=== PATIENT | male | born 1950 | race Two or more races ===

== ENCOUNTER 2020-10-15 08:38 | Outpatient (REF) | payer MEDICARE, MEDICAID, SELFPAY ==
[2020-10-15 09:19] LABS: MANUAL DIFF FLAG NO
[2020-10-15 09:43] LABS: Basophils Percent Auto 0.3 % (0-2); Eosinophils Absolute Auto 0.1 X10*3/uL (0.0-0.4); Eosinophils Percent Auto 1.4 % (0-4); Hematocrit 44.5 % (42-52); Hemoglobin 14.9 g/dl (14.0-18.0); Imm Gran Abs Auto 0.02 X10*3/uL (0.00-0.03); Imm Gran Pct Auto 0.3 % (0.0-0.4); Lymphocytes Absolute Auto 2.1 X10*3/uL (1.2-4.9); Lymphocytes Percent Auto 28.9 % (20-40); Mean Corpuscular HGB Conc 33.5 g/dl (31.0-36.0); Mean Corpuscular Hemoglobin 32.3 pg (27.0-33.0); Mean Corpuscular Volume 96.3 fL (80-98); Mean Platelet Volume 10.2 fL (9.4-12.4); Monocytes Absolute Auto 0.6 X10*3/uL (0.1-1.2); Monocytes Percent Auto 8.8 % (2-11); Neutrophils Absolute Auto 4.3 X10*3/uL (2.0-8.3); Neutrophils Percent Auto 60.3 % (45-73); Platelet Count 218 X10*3/uL (160-400); Red Blood Count 4.62 X10*6/uL (4.60-5.80); Red Cell Distribution Width 12.2 % (11.0-16.0); White Blood Count 7.1 X10*3/uL (4.8-10.8)
[2020-10-15 10:06] LABS: Anion Gap 12 (12-20); Blood Urea Nitrogen 9 mg/dL (9-16); Calcium 9.3 mg/dL (8.4-10.2); Carbon Dioxide 28 mmol/L (22-29); Chloride 107 mmol/L (96-108); Cholesterol 171 mg/dL; Estimated Glomerular Filt Rate > 60; Glucose Fasting 107 mg/dL (60-99); HDL Cholesterol 50 mg/dL; LDL Cholesterol Calculated 105 mg/dl; Potassium 3.8 mmol/L (3.3-5.1); Sodium 143 mmol/L (135-145); Triglycerides 84 mg/dL
== END 2020-10-15 08:39 | disposition home or self-care (01) ==
LOC: HO.LAB 08:38
PROVIDERS: PCP Internal Medicine; Visit Provider Nurse Practitioner Family
DX: K92.9 Disease of digestive system, unspecified (principal); K21.9 Gastro-esophageal reflux disease without esophagitis
CPT/HCPCS: 36415; 80048; 80061; 85025

== ENCOUNTER 2020-10-16 09:48 | Outpatient (REF) | payer MEDICARE, MEDICAID, SELFPAY | END 2020-10-16 09:49 | disposition home or self-care (01) | LOC: HO.LNP 09:48 | PROVIDERS: Visit Provider Nurse Practitioner Family | DX: K92.9 Disease of digestive system, unspecified (principal) | CPT/HCPCS: 87045; 87046 ==

== ENCOUNTER 2021-02-12 09:48 | Outpatient (REF) | payer MEDICARE, MEDICAID, SELFPAY ==
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
== END 2021-02-12 09:49 | disposition home or self-care (01) ==
LOC: HO.NEURO 09:48
PROVIDERS: Visit Provider Internal Medicine
DX: R29.898 Other symptoms and signs involving the musculoskeletal system (principal)
CPT/HCPCS: 95886; 95910

== ENCOUNTER 2021-11-06 08:28 | Outpatient (REF) | payer MEDICARE, MEDICAID, SELFPAY ==
[2021-11-06 08:58] LABS: MANUAL DIFF FLAG NO
[2021-11-06 09:26] LABS: Basophils Percent Auto 0.4 % (0-2); Eosinophils Absolute Auto 0.1 X10*3/uL (0.0-0.4); Eosinophils Percent Auto 1.6 % (0-4); Hematocrit 47.8 % (42.0-52.0); Hemoglobin 15.8 g/dl (14.0-18.0); Imm Gran Abs Auto 0.04 X10*3/uL (0.00-0.03); Imm Gran Pct Auto 0.5 % (0.0-0.4); Lymphocytes Absolute Auto 2.2 X10*3/uL (1.2-4.9); Lymphocytes Percent Auto 26.8 % (20-40); Mean Corpuscular HGB Conc 33.1 g/dl (31.0-36.0); Mean Corpuscular Hemoglobin 32.4 pg (27.0-33.0); Mean Corpuscular Volume 98.2 fL (80.0-98.0); Mean Platelet Volume 9.7 fL (9.4-12.4); Monocytes Absolute Auto 0.7 X10*3/uL (0.1-1.2); Monocytes Percent Auto 8.7 % (2-11); Platelet Count 223 X10*3/uL (160-400); Red Blood Count 4.87 X10*6/uL (4.60-5.80); Red Cell Distribution Width 12.6 % (11.0-16.0)
[2021-11-06 09:37] LABS: Estimated Average Glucose 103 mg/dL; Hemoglobin A1c % 5.2 %
[2021-11-06 10:22] LABS: Alanine Aminotransferase 39 U/L (0-40); Albumin Level 4.4 g/dL (3.5-5.0); Alkaline Phosphatase 123 U/L (39-117); Anion Gap 13 (12-20); Aspartate Amino Transferase 39 U/L (5-37); Bilirubin Total 1.1 mg/dL (0.0-1.0); Blood Urea Nitrogen 13 mg/dL (9-16); Calcium 9.7 mg/dL (8.4-10.2); Carbon Dioxide 29 mmol/L (22-29); Chloride 106 mmol/L (96-108); Cholesterol 219 mg/dL; Estimated Glomerular Filt Rate > 60; Glucose Random 110 mg/dL (60-115); HDL Cholesterol 65 mg/dL; LDL Cholesterol Calculated 132 mg/dl; Potassium 4.5 mmol/L (3.3-5.1); Sodium 143 mmol/L (135-145); Total Protein 7.5 g/dL (6.5-8.0); Triglycerides 110 mg/dL
[2021-11-06 10:48] LABS: Free T4 (Free Thyroxine) 1.02 ng/dL (0.71-1.85); Thyroid Stimulating Hormone 1.59 uIU/mL (0.32-4.0)
[2021-11-06 11:04] LABS: Folate 12.5 ng/mL (> or = 4.0); Vitamin B12 405 pg/mL (200-900)
[2021-11-06 11:30] LABS: Prostate Specific Antigen Scr 0.96 ng/mL (<0.05-4.0)
== END 2021-11-06 08:29 | disposition home or self-care (01) ==
LOC: HO.LAB 08:28
PROVIDERS: PCP Internal Medicine; Visit Provider Internal Medicine
DX: Z12.5 Encounter for screening for malignant neoplasm of prostate (principal); R73.02 Impaired glucose tolerance (oral); E78.00 Pure hypercholesterolemia, unspecified
CPT/HCPCS: 36415; 80053; 80061; 82607; 82746; 83036; 84153; 84439; 84443; 85025

== ENCOUNTER 2023-04-06 12:53 | Outpatient (AMB) | payer MEDICARE, MEDICAID, SELFPAY ==
--- NOTE | 2023-04-06 12:54 | MHC.PC.OV ---
Vital Signs 04/06/23 12:55 Height 5 ft 9 in Weight 190 lb BMI 28.1 BP 132/76 Blood Pressure Location Lt brachial Position Sitting Pulse 79 Pulse Source Pulse Oximeter Pulse Oximetry (%) 97 Oxygen Delivery Method Room Air Intake Visit Reasons: Annual exam Medication List - Last Reconciled 04/06/23 by Demario Escalante MD clotrimazole 1% 1 appl topical BID 4 weeks miconazole nitrate 2% (Zeasorb AF) 1 appl topical BID omeprazole 20 mg PO DAILY trazodone 50 mg PO BEDTIME PRN 90 days Tobacco use date assessed: 04/06/23 Fall risk assessment: No Falls in past year Last assessed Fall Risk: 04/06/23 Dental Screening Dental Screen Date: 04/06/23 Did you have a dental visit in the last 12 months?: No Did you have a dental problem in the last 6 months where you did not have access to dental care?: No Was dental information given to patient?: Patient has dentist HPI Annual exam HPI Details 72-year-old overweight male with hypercholesterolemia GERD impaired glucose tolerance BPH and generalized anxiety disorder last seen in December 2021 coming in for physical exam. Colonoscopy is up-to-date November 2022 was the last blood work with an elevated cholesterol [facility] Medical History (Updated 04/06/23 @ 13:14 by Demario Escalante MD) Alcohol abuse Anxiety and depression BPH (benign prostatic hyperplasia) C2 cervical fracture Digestive problems Fatty liver GERD (gastroesophageal reflux disease) Hepatitis B Hepatitis C Hypercholesterolemia Impaired glucose tolerance Insomnia Polysubstance abuse Vitamin D deficiency Surgical History History of cataract surgery History of cholecystectomy History of open reduction and internal fixation (ORIF) procedure Family History (Updated 04/06/23 @ 12:56 by Lydia Olmos CMA) Father Diabetes Hypertension Mother Gastric cancer Brother Liver cancer Social History (Updated 04/06/23 @ 13:18 by Demario Escalante MD) Housing: Apartment Alcohol intake: current Alcohol intake frequency: a few times a month Patient Tobacco Use Status: Former Tobacco user Tobacco use type: Cigarette Years Smoked: quit 2019 e-Cigarette/Vaping Use: Never Used Second Hand Smoke Exposure: Yes Current occupational status: retired Cognitive needs: No Hearing needs: No Vision needs: No Questionnaire PHQ-9 Over the last 2 weeks, how often have you been bothered by any of the following problems? 1. Little interest or pleasure in doing things: not at all 2. Feeling down, depressed, or hopeless: not at all 3. Trouble falling or staying asleep, or sleeping too much: not at all 4. Feeling tired or having little energy: not at all 5. Poor appetite or overeating: not at all 6. Feeling bad about yourself - or that you are a failure or have let yourself or your family down: not at all 7. Trouble concentrating on things, such as reading the newspaper or watching television: not at all 8. Moving or speaking so slowly that other people could have noticed. Or the opposite - being so fidgety or restless that you have been moving around a lot more than usual: not at all 9. Thoughts that you would be better off or of hurting yourself in some way: not at all Total score: 0 Depression Screening Interpretation: Negative Source: Developed by Drs. Rafy Caballero, Bere Alejandro, Klever Christianson and colleagues, with an educational amador from [employer]. Thrive Questionnaire Date Thrive assessed: 04/06/23 I am a: Patient What is your living situation today?: I have a steady place to live Within the past 12 months, did the food you bought not last and you didn't have the money to get more?: Never true Within the past 12 months, did you worry whether your food would run out before you got money to buy more?: Never true Do you have trouble paying for medicines?: No Do you have trouble getting transportation to medical appointments?: No Do you have trouble paying your heating and electricity bill?: No Do you have trouble taking care of your child, family member or friend?: No Do you have trouble with day-to-day activities such as bathing, preparing meals, shopping, managing finances, etc.?: No Are you currently unemployed and looking for a job?: No Are you interested in more education?: No Currently or been in a relationship where the following occur: no concerns reported AUDIT C Alcohol Use Questionnaire (AUDIT-C) 1. How often do you have a drink containing alcohol?: 2-4 times a month 2. How many drinks containing alcohol do you have on a typical day when you are drinking?: 1 or 2 3. How often do you have six or more drinks on one occasion?: Never Total Score: 2 DE-7 AMB Questionnaire DE-7 Date DE - 7 assessed: 04/06/23 Feeling nervous, anxious, or on edge: 0 = Not at all Not being able to stop or control worryin = Not at all Worrying too much about different things: 0 = Not at all Trouble relaxin = Not at all Being so restless that it is hard to sit still: 0 = Not at all Becoming easily annoyed or irritable: 0 = Not at all Feeling afraid as if something awful might happen: 0 = Not at all Total DE-7 score (0-4 normal; 5-9 mild; 10-14 moderate; 15-21 severe): 0 Source: Developed by Drs. Rafy Caballero, Bere Alejandro, Klever Christianson and colleagues, with an educational amador from [employer]. Review of Systems Const Denies poor appetite and Denies weakness Eyes Denies no additional complaints ENT Reports Normal hearing present, Denies dizziness, Denies nasal congestion, Denies tinnitus and Denies sore throat Card Denies chest pain, Denies syncope, Denies rapid heart rate and Denies dyspnea Resp Denies cough and Denies dyspnea GI Denies change in stool character, Reports constipation, Denies diarrhea, Denies nausea and Denies vomiting Denies dysuria and Denies urinary frequency Neuro Reports Normal hearing present, Denies confusion, Denies dizziness, Denies syncope and Denies weakness Psych Denies confusion Physical exam (Primary Care) Vital Signs: Last Vital Signs Pulse 79 04/06/23 12:55 BP 132/76 04/06/23 12:55 Pulse Ox 97 04/06/23 12:55 Oxygen Delivery Method Room Air 04/06/23 12:55 BMI result Body Mass Index 28.1 Tobacco/Smoking Status: Tobacco use Status Tobacco use date assessed 04/06/23 04/06/23 12:59 Patient Tobacco Use Status Former Tobacco user 04/06/23 12:59 Tobacco use type Cigarette 04/06/23 12:59 e-Cigarette/Vaping Use Never Used 04/06/23 12:59 PHQ-9: PHQ-9 Score PHQ-9: Total score 0 04/06/23 12:59 Depression Screening Interpretation: Negative Thrive Assessment: Date of Thrive Assessment Date Thrive assessed 04/06/23 04/06/23 12:59 Currently or been in a relationship where the following occur: no concerns reported Const General: No confusion Orientation/consciousness: No confusion HENMT Head: Yes normocephalic Ears: external ears normal and TM's normal bilaterally Face and sinus: Yes normal facial exam Mouth: moist mucous membranes Throat: Yes tonsils normal Eyes Conjunctivae: conjunctivae normal Pupils: Equal, round and reactive pupils present and Pupil accommodation reflex normal Direct Ophthalmoscopy: normal light reflex Neck Neck: No lymphadenopathy Thyroid: Thyroid normal Chest Chest palpation & inspection: normal inspection of the chest Resp Effort & Inspection: normal respiratory effort and no audible wheezes Auscultation: clear to auscultation bilaterally, no crackles, no wheezes and lung sounds not diminished Cardio Rate: regular rate Rhythm: regular rhythm Peripheral pulses: radial pulses present and dorsalis pedis present GI Other: declined Palpation (GI): no masses Auscultation: normal bowel sounds and normoactive bowel sounds Rectal Exam - Male: Yes deferred Male General Exam: Yes normal external exam Skin General skin exam: no rashes or lesions noted Rashes: no rashes Neuro General: No confusion Cranial nerves: Yes Equal, round and reactive pupils present and Yes Normal hearing present Cognition (Neuro): normal cognition Gait exam (Neuro): Normal gait present Motor exam (neuro): 5/5 motor strength present throughout Deep tendon reflexes (DTR's): Right brachioradialis reflex intensity grade: 2+, Left brachioradialis reflex intensity grade: 2+, Right patellar reflex intensity grade: 2+ and Left patellar reflex intensity grade: 2+ Extrem General: No edema Assessment and Plan Assessment & Plan (1) Annual physical exam: Code(s): Z00.00 - Encounter for general adult medical examination without abnormal findings (2) Hypercholesterolemia: Code(s): E78.00 - Pure hypercholesterolemia, unspecified Plan: Avoid fried foods, chicken skin, eggs, butter margarine, pastries and meat. Be it pork or beef they have a lot of cholesterol LDL goal of less than 130 and triglyceride of less than 150 will request for blood work (3) GERD (gastroesophageal reflux disease): Comment: loose stools Code(s): K21.9 - Gastro-esophageal reflux disease without esophagitis Qualifiers: Esophagitis presence: without esophagitis Qualified Code(s): K21.9 - Gastro-esophageal reflux disease without esophagitis Plan: Avoid the foods that causes that usually spicy foods, tomato products, juices, coffee, soda and foods that your sensitive to. After eating do not lie down, allow 3-4 hours before in lie down. And keep the head of bed above 30 degrees to avoid the acid from going up. (4) Impaired glucose tolerance: Code(s): R73.02 - Impaired glucose tolerance (oral) Plan: Decrease the amount of carbohydrate intake, pasta, bread, rice and potatoes are all sugar and that is aside from all the sweet stuff, remember that fruits are good but they are Sweet also. (5) BPH (benign prostatic hyperplasia): Code(s): N40.0 - Benign prostatic hyperplasia without lower urinary tract symptoms Qualifiers: Lower urinary tract symptom presence: symptoms present Lower urinary tract symptom detail: urinary frequency Qualified Code(s): N40.1 - Benign prostatic hyperplasia with lower urinary tract symptoms; R35.0 - Frequency of micturition Plan: Stable (6) Generalized anxiety disorder: Code(s): F41.1 - Generalized anxiety disorder Plan: Continued pressure medication Orders: Orders Vitamin B12 and Folate Today E78.00 - Pure hypercholesterolemia, unspecified Comprehensive Met. Panel Today E78.00 - Pure hypercholesterolemia, unspecified Lipid Panel Today E78.00 - Pure hypercholesterolemia, unspecified Prostate Specific Antigen Scr Today E78.00 - Pure hypercholesterolemia, unspecified Free T4 (Free Thyroxine) Today E78.00 - Pure hypercholesterolemia, unspecified Thyroid Stimulating Hormone Today E78.00 - Pure hypercholesterolemia, unspecified Complete Blood Count Auto Diff Today E78.00 - Pure hypercholesterolemia, unspecified Coding Level of Care Code Est Pt Prev Care >65y(29154) Diagnoses Annual physical exam Z00.00 Hypercholesterolemia E78.00 GERD (gastroesophageal reflux disease) K21.9 Esophagitis presence: without esophagitis Impaired glucose tolerance R73.02 BPH (benign prostatic hyperplasia) N40.1; R35.0 Lower urinary tract symptom presence: symptoms present Lower urinary tract symptom detail: urinary frequency Generalized anxiety disorder F41.1
[2023-04-06 12:55] VITALS: BP 132/76; PULSE 79; O2SAT 97; BMI 28.1
== END 2023-04-06 13:28 | disposition home or self-care (01) ==
PROVIDERS: PCP Internal Medicine; Visit Provider Internal Medicine
DX: Z00.00 Encounter for general adult medical examination without abnormal findings (principal); E78.00 Pure hypercholesterolemia, unspecified; K21.9 Gastro-esophageal reflux disease without esophagitis; R73.02 Impaired glucose tolerance (oral); N40.1 Benign prostatic hyperplasia with lower urinary tract symptoms; R35.0 Frequency of micturition; F41.1 Generalized anxiety disorder
CPT/HCPCS: 99397

== ENCOUNTER 2023-06-01 08:59 | Outpatient (REF) | payer MEDICARE, MEDICAID, SELFPAY ==
[2023-06-01 09:23] LABS: MANUAL DIFF FLAG NO
[2023-06-01 09:54] LABS: Basophils Percent Auto 0.4 % (0-2); Eosinophils Absolute Auto 0.1 X10*3/uL (0.0-0.4); Eosinophils Percent Auto 1.1 % (0-4); Hematocrit 47.9 % (42.0-52.0); Hemoglobin 15.8 g/dl (14.0-18.0); Imm Gran Abs Auto 0.02 X10*3/uL (0.00-0.03); Imm Gran Pct Auto 0.3 % (0.0-0.4); Lymphocytes Absolute Auto 2.2 X10*3/uL (1.2-4.9); Lymphocytes Percent Auto 27.1 % (20-40); Mean Corpuscular Hemoglobin 32.2 pg (27.0-33.0); Mean Corpuscular Volume 97.8 fL (80.0-98.0); Monocytes Absolute Auto 0.8 X10*3/uL (0.1-1.2); Monocytes Percent Auto 10.5 % (2-11); Neutrophils Absolute Auto 4.8 x10*3/uL (2.0-8.3); Neutrophils Percent Auto 60.6 % (45-73); Platelet Count 204 X10*3/uL (160-400); Red Cell Distribution Width 13.3 % (11.0-16.0)
[2023-06-01 10:13] LABS: Alanine Aminotransferase 78 U/L (0-40); Albumin Level 4.2 g/dL (3.5-5.0); Alkaline Phosphatase 102 U/L (39-117); Anion Gap 15 (12-20); Aspartate Amino Transferase 79 U/L (5-37); Bilirubin Total 0.8 mg/dL (0.0-1.0); Blood Urea Nitrogen 13 mg/dL (9-16); Calcium 9.6 mg/dL (8.4-10.2); Carbon Dioxide 22 mmol/L (22-29); Chloride 108 mmol/L (96-108); Cholesterol 205 mg/dL (<200); Estimated Glomerular Filt Rate > 60; Glucose Random 112 mg/dL (60-115); HDL Cholesterol 65 mg/dL (>40); LDL Cholesterol Calculated 126 mg/dL (<100); Potassium 3.8 mmol/L (3.3-5.1); Sodium 141 mmol/L (135-145); Total Protein 7.4 g/dL (6.5-8.0); Triglycerides 72 mg/dL (<150)
[2023-06-01 10:34] LABS: Free T4 (Free Thyroxine) 1.01 ng/dL (0.71-1.85); Thyroid Stimulating Hormone 1.18 uIU/mL (0.32-4.0)
[2023-06-01 10:46] LABS: Folate 12.2 ng/mL (> or = 4.0); Prostate Specific Antigen Scr 1.02 ng/mL (<0.05-4.0); Vitamin B12 503 pg/mL (200-900)
== END 2023-06-01 09:00 | disposition home or self-care (01) ==
LOC: HO.LAB 08:59
PROVIDERS: PCP Internal Medicine; Visit Provider Internal Medicine
DX: Z12.5 Encounter for screening for malignant neoplasm of prostate (principal); E78.00 Pure hypercholesterolemia, unspecified
CPT/HCPCS: 36415; 80053; 80061; 82607; 82746; 84153; 84439; 84443; 85025

== ENCOUNTER 2023-12-10 12:52 | Outpatient (AMB) | payer MEDICARE, MEDICAID, SELFPAY ==
[2023-12-10 12:55] VITALS: BP 126/82; PULSE 77; O2SAT 97; BMI 26.9
--- NOTE | 2023-12-10 12:55 | A.OFFPC_ITS ---
Vital Signs 3 12/10/23 12:55 Height 5 ft 9 in Weight 182 lb 0.2 oz BMI 26.9 BP 126/82 Blood Pressure Location Lt brachial Position Sitting Pulse 77 Pulse Source Pulse Oximeter Pulse Oximetry (%) 97 Oxygen Delivery Method Room Air Intake Visit Reasons: fell-left knee hurting Intake Note: pt states left knee pain and swelling [id number] due to a fall. House Player Required: No Allergies No Known Allergies Allergy (Verified 12/10/23 12:56) Medication List - Last Reconciled 12/10/23 by Demario Escalante MD clotrimazole 1% 1 appl topical BID 4 weeks diclofenac sodium 1% (Arthritis Pain (diclofenac)) 4 grams topical QID miconazole nitrate 2% (Zeasorb AF) 1 appl topical BID omeprazole 20 mg PO DAILY trazodone 50 mg PO BEDTIME PRN 90 days Tobacco use date assessed: 12/10/23 Fall risk assessment: No Falls in past year Last assessed Fall Risk: 12/10/23 Dental Screening Dental Screen Date: 04/06/23 HPI fell-left knee hurting 2 HPI0 Details 73-year-old overweight male with hyperch olesterolemia GERD impaired glucose tolerance BPH and generalized anxiety disorder last seen in April 2023. Patient's last colonoscopy was in January 2019. L knee fall 2 months ago and still having pain PFSH Medical History (Updated 12/10/23 @ 13:25 by Demario Escalante MD) Digestive problems Hepatitis C Hepatitis B Polysubstance abuse BPH (benign prostatic hyperplasia) Anxiety and depression Fatty liver Insomnia Impaired glucose tolerance GERD (gastroesophageal reflux disease) Vitamin D deficiency Alcohol abuse Hypercholesterolemia C2 cervical fracture Surgical History History of open reduction and internal fixation (ORIF) procedure History of cataract surgery History of cholecystectomy Family History (Updated 04/06/23 @ 12:56 by Lydia Olmos CMA) Father Diabetes Hypertension Mother Gastric cancer Brother Liver cancer Social History (Updated 04/06/23 @ 13:18 by Demario Escalante MD) Housing: Apartment Alcohol intake: current Alcohol intake frequency: a few times a month Patient Tobacco Use Status: Former Tobacco user Tobacco use type: Cigarette Years Smoked: quit 2019 e-Cigarette/Vaping Use: Never Used Second Hand Smoke Exposure: Yes Current occupational status: retired Cognitive needs: No Hearing needs: No Vision needs: No Questionnaire Thrive Questionnaire Date Thrive assessed: 12/10/23 AUDIT C Alcohol Use Questionnaire (AUDIT-C) 1. How often do you have a drink containing alcohol?: 2-4 times a month 2. How many drinks containing alcohol do you have on a typical day when you are drinking?: 1 or 2 3. How often do you have six or more drinks on one occasion?: Never Total Score: 2 DE-7 AMB Questionnaire DE-7 Date DE - 7 assessed: 12/10/23 Source: Developed by Drs. Rafy Caballero, Bere Alejandro, Klever Christianson and colleagues, with an educational amador from [employer]. Physical exam (Primary Care) Vital Signs: Last Vital Signs Pulse 77 12/10/23 12:55 BP 126/82 12/10/23 12:55 Pulse Ox 97 12/10/23 12:55 Oxygen Delivery Method Room Air 12/10/23 12:55 BMI result Body Mass Index 26.9 Tobacco/Smoking Status: Tobacco use Status Tobacco use date assessed 12/10/23 12/10/23 12:56 Patient Tobacco Use Status Former Tobacco user 12/10/23 12:56 Tobacco use type Cigarette 12/10/23 12:56 e-Cigarette/Vaping Use Never Used 12/10/23 12:56 Thrive Assessment: Date of Thrive Assessment Date Thrive assessed 12/10/23 12/10/23 12:56 Const General: alert; No acute distress Eyes Conjunctivae: conjunctivae normal Resp Auscultation: clear to auscultation bilaterally Cardio Rate: regular rate Rhythm: regular rhythm GI Inspection: Yes normal to inspection Extrem Other: Tender on the medial side as well as posterior area General: No edema Elbow/forearm/wrist images: 2 1. Tender on the medial side and posterior of the knee no swelling or redness noted 2. 3. Assessment and Plan Assessment & Plan (1) Hypercholesterolemia: Code(s): E78.00 - Pure hypercholesterolemia, unspecified Plan: Avoid fried foods, chicken skin, eggs, butter margarine, pastries and meat. Be it pork or beef they have a lot of cholesterol LDL goal of less than 130 and triglyceride of less than 150 (2) GERD (gastroesophageal reflux disease): Comment: loose stools Code(s): K21.9 - Gastro-esophageal reflux disease without esophagitis Qualifiers: Esophagitis presence: without esophagitis Qualified Code(s): K21.9 - Gastro-esophageal reflux disease without esophagitis Plan: Avoid the foods that causes that usually spicy foods, tomato products, juices, coffee, soda and foods that your sensitive to. After eating do not lie down, allow 3-4 hours before in lie down. And keep the head of bed above 30 degrees to avoid the acid from going up. (3) Impaired glucose tolerance: Code(s): R73.02 - Impaired glucose tolerance (oral) (4) Generalized anxiety disorder: Code(s): F41.1 - Generalized anxiety disorder Plan: Stable (5) Fatty liver: Comment: May 2016 Code(s): K76.0 - Fatty (change of) liver, not elsewhere classified Plan: Low-fat diet and exercise (6) Knee pain, left: Comment: Fall early November 2023 Code(s): M25.562 - Pain in left knee Plan: Discussed about anti-inflammatory like Voltaren gel to help with the pain and meanwhile will request for an x-ray of the knee. Pending results either physical therapy or referral to orthopedics. Orders: Orders 2 XR knee LT 2V Today M25.562 - Pain in left knee Medications: New 2 diclofenac sodium 1% (Arthritis Pain (diclofenac)) apply to single knee, ankle, foot; for foot includes sole/toes/top of foot 4 grams topical QID 100 grams 2RF M25.562 - Pain in left knee Refilled 2 trazodone 50 mg PO BEDTIME 90 days PRN 90 tabs 1RF sleep M25.562 - Pain in left knee omeprazole 20 mg PO DAILY 90 caps 2RF K21.9 - Gastro-esophageal reflux disease without esophagitis Coding Level of Care Code Est Pt Level 4 (33200) Diagnoses Hypercholesterolemia E78.00 Gastroesophageal reflux disease without esophagitis K21.9 Esophagitis presence: without esophagitis Impaired glucose tolerance R73.02 Generalized anxiety disorder F41.1 Fatty liver K76.0 Knee pain, left M25.562
== END 2023-12-10 13:26 | disposition home or self-care (01) ==
PROVIDERS: PCP Internal Medicine; Visit Provider Internal Medicine
DX: E78.00 Pure hypercholesterolemia, unspecified (principal); K21.9 Gastro-esophageal reflux disease without esophagitis; R73.02 Impaired glucose tolerance (oral); F41.1 Generalized anxiety disorder; K76.0 Fatty (change of) liver, not elsewhere classified; M25.562 Pain in left knee
CPT/HCPCS: 99214

== ENCOUNTER 2023-12-11 08:52 | Outpatient (REF) | payer MEDICARE, MEDICAID, SELFPAY ==
--- NOTE | ~2023-12-11 | XR_ITS ---
EXAMINATION: XR KNEE, LEFT CLINICAL INFORMATION: Left knee pain. COMPARISON: Bilateral knee radiographs dated 01/25/2018. TECHNIQUE: AP and lateral views of the left knee. FINDINGS: No acute fracture or dislocation. Tiny tricompartmental marginal osteophytes. No osseous erosion. No abnormal soft tissue calcification. Trace joint effusion. XR/XR knee LT 2V IMPRESSION: Mild tricompartmental osteoarthritis and trace joint effusion.
== END 2023-12-11 08:53 | disposition home or self-care (01) ==
LOC: HO.XRAY 08:52
PROVIDERS: PCP Internal Medicine; Visit Provider Internal Medicine
DX: M25.562 Pain in left knee (principal)
CPT/HCPCS: 73560

== ENCOUNTER 2024-04-21 13:00 | Outpatient (AMB) | payer MEDICARE, MEDICAID, SELFPAY ==
[2024-04-21 13:24] VITALS: BP 142/86; PULSE 70; O2SAT 97; BMI 25.4
--- NOTE | 2024-04-21 13:24 | A.OFFPC_ITS ---
Vital Signs 04/21/24 13:24 Height 5 ft 9 in Weight 172 lb 0.1 oz BMI 25.4 BP 142/86 H Blood Pressure Location Lt brachial Position Sitting Pulse 70 Pulse Source Pulse Oximeter Pulse Oximetry (%) 97 Oxygen Delivery Method Room Air Intake Visit Reasons: pe Allergies No Known Allergies Allergy (Verified 12/10/23 12:56) Medication List - Last Reconciled 04/21/24 by Demario Escalante MD omeprazole 20 mg PO DAILY trazodone 50 mg PO BEDTIME PRN 90 days Tobacco use date assessed: 12/10/23 Fall risk assessment: No Falls in past year Last assessed Fall Risk: 04/21/24 Dental Screening Dental Screen Date: 04/21/24 Did you have a dental visit in the last 12 months?: No Did you have a dental problem in the last 6 months where you did not have access to dental care?: No Was dental information given to patient?: Yes HPI pe HPI Details 73-year-old male with hypercholesterolem ia GERD impaired glucose tolerance generalized anxiety disorder coming in for follow-up. Last seen in December 2023. Patient is up-to-date with colonoscopy last time seen having the left knee pain. Showing tricompartmental osteoarthritis and joint effusion. Patient is here for physical exam. L flank pain months intermittently, deny urinary problem PFSH Medical History (Updated 04/21/24 @ 13:51 by Demario Escalante MD) Digestive problems Hepatitis C Hepatitis B Polysubstance abuse BPH (benign prostatic hyperplasia) Anxiety and depression Fatty liver Insomnia Impaired glucose tolerance GERD (gastroesophageal reflux disease) Vitamin D deficiency Alcohol abuse Hypercholesterolemia C2 cervical fracture Surgical History History of open reduction and internal fixation (ORIF) procedure History of cataract surgery History of cholecystectomy Family History (Updated 04/06/23 @ 12:56 by Lydia Olmos CMA) Father Diabetes Hypertension Mother Gastric cancer Brother Liver cancer Social History (Updated 04/21/24 @ 13:38 by Demario Escalante MD) Housing: Apartment Alcohol intake: current Alcohol intake frequency: a few times a month Comment: weekend 3-4 beers Patient Tobacco Use Status: Former Tobacco user Tobacco use type: Cigarette Years Smoked: quit 2020 smokes pot e-Cigarette/Vaping Use: Never Used Second Hand Smoke Exposure: Yes Current occupational status: retired Cognitive needs: No Hearing needs: No Vision needs: No Questionnaire Thrive Questionnaire Date Thrive assessed: 12/10/23 AUDIT C Alcohol Use Questionnaire (AUDIT-C) 1. How often do you have a drink containing alcohol?: Never 3. How often do you have six or more drinks on one occasion?: Never Total Score: 0 DE-7 AMB Questionnaire DE-7 Date DE - 7 assessed: 04/21/24 Feeling nervous, anxious, or on edge: 0 = Not at all Not being able to stop or control worryin = Not at all Worrying too much about different things: 0 = Not at all Trouble relaxin = Not at all Being so restless that it is hard to sit still: 0 = Not at all Becoming easily annoyed or irritable: 0 = Not at all Feeling afraid as if something awful might happen: 0 = Not at all Total DE-7 score (0-4 normal; 5-9 mild; 10-14 moderate; 15-21 severe): 0 Source: Developed by Drs. Rafy Caballero, Bere Alejandro, Klever Christianson and colleagues, with an educational amador from [employer]. DE-7 Assessment Billing DE-7 Assessment Tool: DE-7 Assessment 65325 Review of Systems Const Denies poor appetite and Denies weakness Eyes Denies no additional complaints ENT Reports Normal hearing present, Denies dizziness, Denies nasal congestion, Denies tinnitus and Denies sore throat Card Denies chest pain, Denies syncope, Denies rapid heart rate and Denies dyspnea Resp Denies cough and Denies dyspnea GI Denies change in stool character, Reports constipation, Denies diarrhea, Denies nausea and Denies vomiting Denies dysuria and Denies urinary frequency Neuro Reports Normal hearing present, Denies confusion, Denies dizziness, Denies syncope and Denies weakness Psych Denies confusion Physical exam (Primary Care) Vital Signs: Last Vital Signs Pulse 70 04/21/24 13:24 BP 142/86 H 04/21/24 13:24 Pulse Ox 97 04/21/24 13:24 Oxygen Delivery Method Room Air 04/21/24 13:24 BMI result Body Mass Index 25.4 Tobacco/Smoking Status: Tobacco use Status Tobacco use date assessed 12/10/23 04/21/24 13:29 Patient Tobacco Use Status Former Tobacco user 04/21/24 13:38 Tobacco use type Cigarette 04/21/24 13:38 e-Cigarette/Vaping Use Never Used 04/21/24 13:38 Thrive Assessment: Date of Thrive Assessment Date Thrive assessed 12/10/23 04/21/24 13:29 Const General: No confusion Orientation/consciousness: No confusion HENMT Head: Yes normocephalic Ears: external ears normal and TM's normal bilaterally Face and sinus: Yes normal facial exam Mouth: moist mucous membranes Throat: Yes tonsils normal Eyes Conjunctivae: conjunctivae normal Pupils: Equal, round and reactive pupils present and Pupil accommodation reflex normal Direct Ophthalmoscopy: normal light reflex Neck Neck: No lymphadenopathy Thyroid: Thyroid normal Chest Chest palpation & inspection: normal inspection of the chest Resp Effort & Inspection: normal respiratory effort and no audible wheezes Auscultation: clear to auscultation bilaterally, no crackles, no wheezes and lung sounds not diminished Cardio Rate: regular rate Rhythm: regular rhythm Peripheral pulses: radial pulses present and dorsalis pedis present GI Other: guaiac negative , prostate enlarged Palpation (GI): no masses Auscultation: normal bowel sounds and normoactive bowel sounds Male General Exam: Yes normal external exam Skin General skin exam: no rashes or lesions noted Rashes: no rashes Neuro General: No confusion Cranial nerves: Yes Equal, round and reactive pupils present and Yes Normal hearing present Cognition (Neuro): normal cognition Gait exam (Neuro): Normal gait present Motor exam (neuro): 5/5 motor strength present throughout Deep tendon reflexes (DTR's): Right brachioradialis reflex intensity grade: 2+, Left brachioradialis reflex intensity grade: 2+, Right patellar reflex intensity grade: 2+ and Left patellar reflex intensity grade: 2+ Extrem General: No edema Assessment and Plan Assessment & Plan (1) Annual physical exam: Code(s): Z00.00 - Encounter for general adult medical examination without abnormal findings Plan: Patient is advised to eat healthy, keep well hydrated, keep active and have adequate sleep. (2) Hypercholesterolemia: Code(s): E78.00 - Pure hypercholesterolemia, unspecified Plan: Avoid fried foods, chicken skin, eggs, butter margarine, pastries and meat. Be it pork or beef they have a lot of cholesterol LDL goal of less than 130 and triglyceride of less than 150 05/26/2023 last tested (3) GERD (gastroesophageal reflux disease): Comment: loose stools Code(s): K21.9 - Gastro-esophageal reflux disease without esophagitis Qualifiers: Esophagitis presence: without esophagitis Qualified Code(s): K21.9 - Gastro-esophageal reflux disease without esophagitis Plan: Avoid the foods that causes that usually spicy foods, tomato products, juices, coffee, soda and foods that your sensitive to. After eating do not lie down, allow 3-4 hours before in lie down. And keep the head of bed above 30 degrees to avoid the acid from going up. (4) Impaired glucose tolerance: Code(s): R73.02 - Impaired glucose tolerance (oral) Plan: Decrease the amount of carbohydrate intake, pasta, bread, rice and potatoes are all sugar and that is aside from all the sweet stuff, remember that fruits are good but they are Sweet also. (5) BPH (benign prostatic hyperplasia): Code(s): N40.0 - Benign prostatic hyperplasia without lower urinary tract symptoms Qualifiers: Lower urinary tract symptom detail: urinary frequency Lower urinary tract symptom presence: symptoms present Qualified Code(s): N40.1 - Benign prostatic hyperplasia with lower urinary tract symptoms; R35.0 - Frequency of micturition Plan: Stable (6) Generalized anxiety disorder: Code(s): F41.1 - Generalized anxiety disorder Plan: Stable (7) Knee pain, left: Comment: Fall early November 2023 Code(s): M25.562 - Pain in left knee Plan: X-ray did show arthritis tricompartmental. Resolved (8) Blood pressure elevated without history of HTN: Code(s): R03.0 - Elevated blood-pressure reading, without diagnosis of hypertension Plan: Concern that the blood pressure is elevated and so advised to monitor the blood pressure. Low-salt diet and continue losing the weight (9) Erectile dysfunction: Code(s): N52.9 - Male erectile dysfunction, unspecified Qualifiers: Erectile dysfunction type: vasculogenic Vasculogenic erectile dysf unction type: unspecified Qualified Code(s): N52.9 - Male erectile dysfunction, unspecified Plan: Viagra prescription sent in Orders: Orders Comprehensive Met. Panel Today E78.00 - Pure hypercholesterolemia, unspecified Hemoglobin A1c Today E78.00 - Pure hypercholesterolemia, unspecified Complete Blood Count Auto Diff Today E78.00 - Pure hypercholesterolemia, unspecified Free T4 (Free Thyroxine) Today E78.00 - Pure hypercholesterolemia, unspecified Lipid Panel Today E78.00 - Pure hypercholesterolemia, unspecified Thyroid Stimulating Hormone Today E78.00 - Pure hypercholesterolemia, unspecified Vitamin B12 and Folate Today E78.00 - Pure hypercholesterolemia, unspecified Prostate Specific Antigen Scr Today N40.1 - Benign prostatic hyperplasia with lower urinary tract symptoms, R35.0 - Frequency of micturition Medications: New sildenafil (Viagra) administer 30 minutes to 4 hours before activity 100 mg PO DAILY PRN 14 tabs 2RF sexual activity N52.9 - Male erectile dysfunction, unspecified Refilled omeprazole 20 mg PO DAILY 90 caps 2RF K21.9 - Gastro-esophageal reflux disease without esophagitis trazodone 50 mg PO BEDTIME 90 days PRN 90 tabs 1RF sleep M25.562 - Pain in left knee Coding Level of Care Code Est Pt Prev Care >65y(75064) Diagnoses Annual physical exam Z00.00 Hypercholesterolemia E78.00 Gastroesophageal reflux disease without esophagitis K21.9 Esophagitis presence: without esophagitis Impaired glucose tolerance R73.02 Benign prostatic hyperplasia with urinary frequency N40.1; R35.0 Lower urinary tract symptom detail: urinary frequency Lower urinary tract symptom presence: symptoms present Generalized anxiety disorder F41.1 Knee pain, left M25.562 Blood pressure elevated without history of HTN R03.0 Vasculogenic erectile dysfunction, unspecified vasculogenic erectile dysfunction type N52.9 Erectile dysfunction type: vasculogenic Vasculogenic erectile dysfunction type: unspecified Additional Codes DE-7 Assessment Billing - DE-7 Assessment Tool: DE-7 Assessment [id number] ([id number])
== END 2024-04-21 13:53 | disposition home or self-care (01) ==
PROVIDERS: PCP Internal Medicine; Visit Provider Internal Medicine
DX: Z00.00 Encounter for general adult medical examination without abnormal findings (principal); E78.00 Pure hypercholesterolemia, unspecified; K21.9 Gastro-esophageal reflux disease without esophagitis; R73.02 Impaired glucose tolerance (oral); N40.1 Benign prostatic hyperplasia with lower urinary tract symptoms; R35.0 Frequency of micturition; F41.1 Generalized anxiety disorder; M25.562 Pain in left knee; R03.0 Elevated blood-pressure reading, without diagnosis of hypertension; N52.9 Male erectile dysfunction, unspecified
CPT/HCPCS: 99397

== ENCOUNTER 2024-05-17 08:32 | Outpatient (REF) | payer MEDICARE, MEDICAID, SELFPAY ==
[2024-05-17 08:50] LABS: MANUAL DIFF FLAG NO
[2024-05-17 09:03] LABS: Basophils Percent Auto 0.4 % (0-2); Eosinophils Absolute Auto 0.1 X10*3/uL (0.0-0.4); Eosinophils Percent Auto 0.9 % (0-4); Hematocrit 45.3 % (42.0-52.0); Hemoglobin 15.2 g/dl (14.0-18.0); Imm Gran Abs Auto 0.02 X10*3/uL (0.00-0.03); Imm Gran Pct Auto 0.3 % (0.0-0.4); Lymphocytes Absolute Auto 1.7 X10*3/uL (1.2-4.9); Lymphocytes Percent Auto 25.1 % (20-40); Mean Corpuscular HGB Conc 33.6 g/dl (31.0-36.0); Mean Corpuscular Hemoglobin 33.1 pg (27.0-33.0); Mean Corpuscular Volume 98.7 fL (80.0-98.0); Mean Platelet Volume 9.8 fL (9.4-12.4); Monocytes Absolute Auto 0.6 X10*3/uL (0.1-1.2); Monocytes Percent Auto 9.1 % (2-11); Neutrophils Absolute Auto 4.4 x10*3/uL (2.0-8.3); Neutrophils Percent Auto 64.2 % (45-73); Platelet Count 203 X10*3/uL (160-400); Red Blood Count 4.59 X10*6/uL (4.60-5.80); Red Cell Distribution Width 12.9 % (11.0-16.0); White Blood Count 6.9 X10*3/uL (4.8-10.8)
[2024-05-17 09:09] LABS: Estimated Average Glucose 97 mg/dL
[2024-05-17 09:47] LABS: Alanine Aminotransferase 18 U/L (0-40); Albumin Level 4.3 g/dL (3.5-5.0); Alkaline Phosphatase 102 U/L (39-117); Anion Gap 14 (12-20); Aspartate Amino Transferase 23 U/L (5-37); Blood Urea Nitrogen 12 mg/dL (9-16); Calcium 9.6 mg/dL (8.4-10.2); Carbon Dioxide 28 mmol/L (22-29); Chloride 107 mmol/L (96-108); Cholesterol 197 mg/dL (<200); Estimated Glomerular Filt Rate > 60; Glucose Random 109 mg/dL (60-115); HDL Cholesterol 77 mg/dL (>40); LDL Cholesterol Calculated 105 mg/dL (<100); Potassium 3.5 mmol/L (3.3-5.1); Sodium 145 mmol/L (135-145); Total Protein 7.4 g/dL (6.5-8.0); Triglycerides 79 mg/dL (<150)
[2024-05-17 10:06] LABS: Free T4 (Free Thyroxine) 0.93 ng/dL (0.71-1.85); Thyroid Stimulating Hormone 0.99 uIU/mL (0.32-4.0)
[2024-05-17 10:18] LABS: Prostate Specific Antigen Scr 0.62 ng/mL (<0.05-4.0); Vitamin B12 324 pg/mL (200-900)
[2024-05-22 14:13] LABS: Testosterone, Total 486 ng/dL (250-1100)
== END 2024-05-17 08:33 | disposition home or self-care (01) ==
LOC: HO.LAB 08:32
PROVIDERS: PCP Internal Medicine; Visit Provider Internal Medicine
DX: E78.00 Pure hypercholesterolemia, unspecified (principal); N52.9 Male erectile dysfunction, unspecified; N40.1 Benign prostatic hyperplasia with lower urinary tract symptoms; R35.0 Frequency of micturition; Z12.5 Encounter for screening for malignant neoplasm of prostate; Z13.1 Encounter for screening for diabetes mellitus
CPT/HCPCS: 36415; 80053; 80061; 82607; 82746; 83036; 84153; 84403; 84439; 84443; 85025

== ENCOUNTER 2024-07-25 08:25 | Outpatient (AMB) | payer MEDICARE, MEDICAID, SELFPAY ==
[2024-07-25 08:33] VITALS: BP 158/90; PULSE 79; O2SAT 98; BMI 25.8
--- NOTE | 2024-07-25 08:33 | MHC.PC.OV ---
Vital Signs 07/25/24 08:33 07/25/24 08:47 Height 5 ft 9 in Weight 175 lb BMI 25.8 BP 158/90 H 158/84 H Blood Pressure Location Lt brachial Lt brachial Position Sitting Sitting Pulse 79 Pulse Source Pulse Oximeter Pulse Oximetry (%) 98 Oxygen Delivery Method Room Air Intake Visit Reasons: Elevated BP Allergies No Known Allergies Allergy (Verified 12/10/23 12:56) Medication List - Last Reconciled 07/25/24 by Grisel Gracia PA-C omeprazole 20 mg PO DAILY sildenafil (Viagra) 100 mg PO DAILY PRN trazodone 50 mg PO BEDTIME PRN 90 days Tobacco use date assessed: 12/10/23 Fall risk assessment: No Falls in past year Last assessed Fall Risk: 07/25/24 Dental Screening Dental Screen Date: 04/21/24 HPI Elevated BP HPI Details 73-year-old male with hypercholesterolemia GERD impaired glucose tolerance generalized anxiety disorder coming in for follow-up. Patient states he is feeling generally well and has no acute concerns today. He has not been taking blood pressures at home but does say he has anxiety when coming to the doctor's. [facility] Medical History (Updated 04/21/24 @ 13:51 by Demario Escalante MD) Digestive problems Hepatitis C Hepatitis B Polysubstance abuse BPH (benign prostatic hyperplasia) Anxiety and depression Fatty liver Insomnia Impaired glucose tolerance GERD (gastroesophageal reflux disease) Vitamin D deficiency Alcohol abuse Hypercholesterolemia C2 cervical fracture Surgical History History of open reduction and internal fixation (ORIF) procedure History of cataract surgery History of cholecystectomy Family History (Updated 04/06/23 @ 12:56 by Lydia Olmos CMA) Father Diabetes Hypertension Mother Gastric cancer Brother Liver cancer Social History (Updated 04/21/24 @ 13:38 by Demario Escalante MD) Housing: Apartment Alcohol intake: current Alcohol intake frequency: a few times a month Comment: weekend 3-4 beers Patient Tobacco Use Status: Former Tobacco user Tobacco use type: Cigarette Years Smoked: quit 2020 smokes pot e-Cigarette/Vaping Use: Never Used Second Hand Smoke Exposure: Yes Current occupational status: retired Cognitive needs: No Hearing needs: No Vision needs: No Questionnaire Thrive Questionnaire Date Thrive assessed: 12/10/23 AUDIT C Alcohol Use Questionnaire (AUDIT-C) 1. How often do you have a drink containing alcohol?: Never 3. How often do you have six or more drinks on one occasion?: Never Total Score: 0 DE-7 AMB Questionnaire DE-7 Date DE - 7 assessed: 04/21/24 Source: Developed by Drs. Rafy Caballero, Bere Alejandro, Klever Christianson and colleagues, with an educational amador from [employer]. Review of Systems Const Denies body aches, Denies chills, Denies fever(s), Denies headache(s) and Denies poor appetite Eyes Reports no additional complaints ENT Denies dysphagia, Denies dizziness, Denies headache(s) and Denies odynophagia Card Denies chest pain, Denies syncope, Denies edema, Denies irregular heart rhythm, Denies lightheadedness and Denies dyspnea Resp Denies cough and Denies dyspnea GI Denies abdominal pain, Denies constipation, Denies dysphagia, Denies diarrhea, Denies nausea, Denies odynophagia and Denies vomiting Reports no additional complaints Musc Reports no additional complaints and Denies abnormal gait Skin/Breast Reports system reviewed and no additional complaints, except as documented Neuro Denies abnormal gait, Denies dizziness, Denies syncope and Denies headache(s) Psych Reports no additional complaints Physical exam (Primary Care) Tobacco/Smoking Status: Tobacco use Status Tobacco use date assessed 12/10/23 04/21/24 13:29 Patient Tobacco Use Status Former Tobacco user 04/21/24 13:38 Tobacco use type Cigarette 04/21/24 13:38 e-Cigarette/Vaping Use Never Used 04/21/24 13:38 Thrive Assessment: Date of Thrive Assessment Date Thrive assessed 12/10/23 04/21/24 13:29 Const General: cooperative, healthy appearing, comfortable and no acute distress Orientation/consciousness: patient oriented x3 HENMT Head: Yes normocephalic Ears: hearing grossly normal bilaterally General nose exam: Normal external nose present Eyes General: appearance normal, both eyes and all related structures Conjunctivae: conjunctivae normal Neck Neck: Yes full ROM and Yes no lymphadenopathy Resp Effort & Inspection: normal respiratory effort Auscultation: clear to auscultation bilaterally, no crackles, no rales, no rhonchi and no wheezes Cardio Rate: regular rate Rhythm: regular rhythm Skin General skin exam: no rashes or lesions noted Neuro General: patient oriented x3 Gait exam (Neuro): Normal gait present Extrem General: Yes normal to inspection, Yes full ROM and No edema Psych Affect: normal affect Attitude: cooperative Insight: Good insight present (Psych) Judgement: Good judgement present (Psych) Coding Level of Care Code Est Pt Level 3 (11303) Diagnoses Blood pressure elevated without history of HTN R03.0 Gastroesophageal reflux disease without esophagitis K21.9 Esophagitis presence: without esophagitis Impaired glucose tolerance R73.02 Hypercholesterolemia E78.00 Assessment & Plan Assessment & Plan (1) Blood pressure elevated without history of HTN: Code(s): R03.0 - Elevated blood-pressure reading, without diagnosis of hypertension Category: Medical Plan: Blood pressure elevated again on exam. Patient states he does have anxiety when coming to the doctor's office in place his blood pressure may be normal at home. Patient is refusing medication at this time. Discussed the possible adverse reactions of having prolonged elevated blood pressure and patient understands. Patient will take blood pressure at home 3-4 times per week and record values and follow up in 6 weeks. Patient agrees to reach out to office if values are above 140/90. (2) GERD (gastroesophageal reflux disease): Comment: loose stools Code(s): K21.9 - Gastro-esophageal reflux disease without esophagitis Category: Medical Qualifiers: Esophagitis presence: without esophagitis Qualified Code(s): K21.9 - Gastro-esophageal reflux disease without esophagitis Plan: Avoid trigger foods such as citrus, tomato products, soda, caffeine, spicy foods and other foods that may be irritating to your stomach. Avoid laying flat 3-4 hours after eating and elevate the head of the bed 30 degrees to prevent acid from moving into the esophagus. Continue on omeprazole (3) Impaired glucose tolerance: Code(s): R73.02 - Impaired glucose tolerance (oral) Category: Medical Plan: Decrease the amount of carbohydrates such as pasta, bread, rice, and potatoes and limit the amount of sweets. Although fruits are generally healthy they should be eaten in moderation as they are still high in sugar. Last A1c normal. (4) Hypercholesterolemia: Code(s): E78.00 - Pure hypercholesterolemia, unspecified Category: Medical Plan: Avoid foods that are high in cholesterol such as red meat, fried foods, eggs and baked goods. Triglyceride goal of less than 100 and LDL goal of less than 130. Not currently on medical management. Plan This note was constructed using voice recognition software. While every effort has been made to ensure accuracy and migration agent, still areas may have been included sometimes these areas may affect the content or meeting of the given symptoms. Total time spent caring for the patient today was 30 minutes. This includes time spent before the visit reviewing the chart, time spent during the visit, and time spent after the visit and documentation. Medications: New miscellaneous medical supply (Blood Pressure Cuff) As directed 1 ea 0RF
[2024-07-25 08:47] VITALS: BP 158/84
== END 2024-07-25 08:55 | disposition home or self-care (01) ==
PROVIDERS: PCP Internal Medicine
DX: R03.0 Elevated blood-pressure reading, without diagnosis of hypertension (principal); K21.9 Gastro-esophageal reflux disease without esophagitis; R73.02 Impaired glucose tolerance (oral); E78.00 Pure hypercholesterolemia, unspecified

== ENCOUNTER → 2024-07-25 08:25 | Outpatient (BNVA) | payer MEDICARE, MEDICAID, SELFPAY | PROVIDERS: PCP Internal Medicine | DX: R03.0 Elevated blood-pressure reading, without diagnosis of hypertension (principal); K21.9 Gastro-esophageal reflux disease without esophagitis; R73.02 Impaired glucose tolerance (oral); E78.00 Pure hypercholesterolemia, unspecified | CPT/HCPCS: 99212 ==

== ENCOUNTER 2024-09-05 08:27 | Outpatient (AMB) | payer MEDICARE, MEDICAID, SELFPAY ==
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
[2024-09-05 08:31] VITALS: BP 130/90; PULSE 71; O2SAT 99; BMI 26.6
--- OUTSIDE RECORDS SUMMARY | 2024-09-05 08:31 | XMS_ITS | Patient Health Record ---
Author Organization [facility] Address [address] [place] [address] Care Team Providers Care Head Buyer Tobacco Name Role Phone Demario Escalante MD Primary Care Provider Sumit Quiles Jr Unavailable REASON FOR REFERRAL No Information MEDICATIONS Medication SIG (Take, Route, Fr equency, Duration) Notes Start Date End Date Status Omeprazole 20 MG 1 capsule Orally Once a day Active Suboxone Active SOCIAL HISTORY Sex Assigned At : Social History Observation Description Sex Assigned At Unknown PROBLEMS Problem Type ICD Code Onset Dates Problem Status W/U Status Risk SNOMED Code Notes Problem Hepatitis B core antibody positive (R76.8) Active confirmed 128586017 Problem Positive hepatitis C antibody test (R76.8) Active confirmed 064950667 Problem Gastroesophageal reflux disease without esophagitis (K21.9) Active confirmed 010330862 Problem Fatty liver (K76.0) Active confirmed 19 [id number] PLAN OF TREATMENT No Information Insurance Providers Payer Name Payer Address Payer Phone Subscriber Number Group Number Insured Name Patient Relationship to Insured Coverage Start Date Coverage End Date MEDICARE OF [place] [address] [place] [id number] LUX ELKINS Self - patient is the insured MEDICAID OF [facility] [employer] [address] [place] [address] [id number] LUX ELKINS Self - patient is the insured MEDICAL (GENERAL) HISTORY Medical History History ICD Code gastroesophageal reflux disease Denies OK,DM,CVA,Lung disease,renal dise ase Surgical History Surgery Date(Month/Year) cholecystectomy
== END 2024-09-05 09:04 | disposition home or self-care (01) ==
PROVIDERS: PCP Internal Medicine
DX: Z23 Encounter for immunization (principal)

== ENCOUNTER → 2024-09-05 08:27 | Outpatient (BNVA) | payer MEDICARE, MEDICAID, SELFPAY | PROVIDERS: PCP Internal Medicine | DX: Z23 Encounter for immunization (principal); R03.0 Elevated blood-pressure reading, without diagnosis of hypertension; S12.100G Unspecified displaced fracture of second cervical vertebra, subsequent encounter for fracture with delayed healing; R73.02 Impaired glucose tolerance (oral) | CPT/HCPCS: 90471; 90656; 96127; 99212 ==

== ENCOUNTER 2024-10-16 09:34 | Outpatient (AMB) ==
--- NOTE | 2024-10-16 09:36 | MHC.PC.OV ---
Vital Signs 10/16/24 09:38 Height 5 ft 9 in Weight 178 lb BMI 26.3 BP 142/80 H Blood Pressure Location Lt brachial Position Sitting Pulse 77 Pulse Source Pulse Oximeter Pulse Oximetry (%) 99 Oxygen Delivery Method Room Air Intake Visit Reasons: Back pain Intake Note: Patient here c/o back pain Booking Officer Required: No Accompanied by: Self / Same As Patient Allergies No Known Allergies Allergy (Verified 10/16/24 09:42) Tobacco use date assessed: 10/16/24 Fall risk assessment: 1 Fall in past year Last assessed Fall Risk: 10/16/24 Dental Screening Dental Screen Date: 10/16/24 Did you have a dental visit in the last 12 months?: No Did you have a dental problem in the last 6 months where you did not have access to dental care?: No Was dental information given to patient?: Patient has dentist HPI Back pain HPI Details The patient is a 73-year-old male presenting with elevated blood pressure and back pain. The history of elevated blood pressure was noted during his last visit on July 25. Since that time, his blood pressure readings have been consistently high, except for one occasion on October 05. The patient follows a low-fat diet and an exercise regimen, and there are plans to continue monitoring his blood pressure and cholesterol levels. On the current visit, his blood pressure measured at 140/80 mmHg, but prior measurements were higher. The patient is considering medication to control his hypertension. The patient also reports new-onset back pain following a fall two months ago, where he slipped and fell directly on his buttocks. There has been no x-ray imaging conducted to date. The pain is localized to the back area and does not radiate to the front. Non-pharmacological interventions, including Tylenol, offered no relief. The patient denies any loss of consciousness during the fall. The patient mentions existing issues with generalized anxiety disorder, managed with no noteworthy mental health changes reported recently. Additionally, he has a past medical history of benign prostatic hyperplasia (BPH) and gastroesophageal reflux disease (GERD), which are known to be under control with current medication. [facility] Medical History Digestive problems Hepatitis C Hepatitis B Polysubstance abuse BPH (benign prostatic hyperplasia) Anxiety and depression Fatty liver Insomnia Impaired glucose tolerance GERD (gastroesophageal reflux disease) Vitamin D deficiency Alcohol abuse Hypercholesterolemia C2 cervical fracture Surgical History History of open reduction and internal fixation (ORIF) procedure History of cataract surgery History of cholecystectomy Family History Father Diabetes Hypertension Mother Gastric cancer Brother Liver cancer Social History Housing: Apartment Alcohol intake: current Alcohol intake frequency: a few times a month Comment: weekend 3-4 beers Patient Tobacco Use Status: Former Tobacco user Tobacco use type: Cigarette Years Smoked: quit 2020 smokes pot e-Cigarette/Vaping Use: Never Used Second Hand Smoke Exposure: Yes service: No Current occupational status: retired Cognitive needs: No Hearing needs: No Vision needs: No Questionnaire PHQ-9 Over the last 2 weeks, how often have you been bothered by any of the following problems? 1. Little interest or pleasure in doing things: not at all 2. Feeling down, depressed, or hopeless: not at all 3. Trouble falling or staying asleep, or sleeping too much: not at all 4. Feeling tired or having little energy: not at all 5. Poor appetite or overeating: not at all 6. Feeling bad about yourself - or that you are a failure or have let yourself or your family down: not at all 7. Trouble concentrating on things, such as reading the newspaper or watching television: not at all 8. Moving or speaking so slowly that other people could have noticed. Or the opposite - being so fidgety or restless that you have been moving around a lot more than usual: not at all 9. Thoughts that you would be better off or of hurting yourself in some way: not at all Total score: 0 Depression Screening Interpretation: Negative Depression Screening Done: Yes Source: Developed by Drs. Rafy Caballero, Bere Alejandro, Klever Christianson and colleagues, with an educational amador from [employer]. Thrive Questionnaire Date Thrive assessed: 10/16/24 I am a: Patient What is your living situation today?: I have a steady place to live Within the past 12 months, did the food you bought not last and you didn't have the money to get more?: Never true Within the past 12 months, did you worry whether your food would run out before you got money to buy more?: Never true Do you have trouble paying for medicines?: No Do you have trouble getting transportation to medical appointments?: No Do you have trouble paying your heating and electricity bill?: No Do you have trouble taking care of your child, family member or friend?: No Do you have trouble with day-to-day activities such as bathing, preparing meals, shopping, managing finances, etc.?: No Are you currently unemployed and looking for a job?: No Are you interested in more education?: No Please select the resources that you would like help with: None Currently or been in a relationship where the following occur: No concerns reported THRIVE Score: 0 AUDIT C Alcohol Use Questionnaire (AUDIT-C) 1. How often do you have a drink containing alcohol?: Never Total Score: 0 DE-7 AMB Questionnaire DE-7 Date DE - 7 assessed: 10/16/24 Feeling nervous, anxious, or on edge: 0 = Not at all Not being able to stop or control worryin = Not at all Worrying too much about different things: 0 = Not at all Trouble relaxin = Not at all Being so restless that it is hard to sit still: 0 = Not at all Becoming easily annoyed or irritable: 0 = Not at all Feeling afraid as if something awful might happen: 0 = Not at all Total DE-7 score (0-4 normal; 5-9 mild; 10-14 moderate; 15-21 severe): 0 Source: Developed by Drs. Rafy Caballero, Bere Alejandro, Klever Christianson and colleagues, with an educational amador from [employer]. Physical exam (Primary Care) Vital Signs: Last Vital Signs Pulse 77 10/16/24 09:38 BP 142/80 H 10/16/24 09:38 Pulse Ox 99 10/16/24 09:38 Oxygen Delivery Method Room Air 10/16/24 09:38 BMI result Body Mass Index 26.3 Tobacco/Smoking Status: Tobacco use Status Tobacco use date assessed 10/16/24 10/16/24 09:43 Patient Tobacco Use Status Former Tobacco user 10/16/24 09:43 Tobacco use type Cigarette 10/16/24 09:43 e-Cigarette/Vaping Use Never Used 10/16/24 09:43 PHQ-9: PHQ-9 Score PHQ-9: Total score 0 10/16/24 09:43 Depression Screening Interpretation: Negative Thrive Assessment: Date of Thrive Assessment Date Thrive assessed 10/16/24 10/16/24 09:43 Currently or been in a relationship where the following occur: No concerns reported Const General: alert; No acute distress Eyes Conjunctivae: conjunctivae normal Resp Auscultation: clear to auscultation bilaterally Cardio Rate: regular rate Rhythm: regular rhythm GI Inspection: Yes normal to inspection Extrem General: Yes normal to inspection and No edema Coding Level of Care Code Est Pt Level 4 (22730) Diagnoses Blood pressure elevated without history of HTN R03.0 Fatty liver K76.0 Impaired glucose tolerance R73.02 Gastroesophageal reflux disease without esophagitis K21.9 Esophagitis presence: without esophagitis Hypercholesterolemia E78.00 Hypertension I10 Low back pain M54.50 Assessment & Plan Assessment & Plan (1) Blood pressure elevated without history of HTN: Code(s): R03.0 - Elevated blood-pressure reading, without diagnosis of hypertension Category: Medical Plan: Patient's blood pressure is elevated here but on retesting before has been better (2) Fatty liver: Comment: May 2016 Code(s): K76.0 - Fatty (change of) liver, not elsewhere classified Category: Medical Plan: Low-fat diet and exercise (3) Impaired glucose tolerance: Code(s): R73.02 - Impaired glucose tolerance (oral) Category: Medical Plan: Decrease the amount of carbohydrate intake, pasta, bread, rice and potatoes are all sugar and that is aside from all the sweet stuff, remember that fruits are good but they are Sweet also. (4) GERD (gastroesophageal reflux disease): Comment: loose stools Code(s): K21.9 - Gastro-esophageal reflux disease without esophagitis Category: Medical Qualifiers: Esophagitis presence: without esophagitis Qualified Code(s): K21.9 - Gastro-esophageal reflux disease without esophagitis Plan: Avoid the foods that causes that usually spicy foods, tomato products, juices, coffee, soda and foods that your sensitive to. After eating do not lie down, allow 3-4 hours before in lie down. And keep the head of bed above 30 degrees to avoid the acid from going up. (5) Hypercholesterolemia: Code(s): E78.00 - Pure hypercholesterolemia, unspecified Category: Medical Plan: Continue to monitor cholesterol (6) Hypertension: Code(s): I10 - Essential (primary) hypertension Category: Medical (7) Low back pain: Code(s): M54.50 - Low back pain, unspecified Category: Medical Plan - Initiate pharmacotherapy for hypertension with a weak diuretic, considering side effects such as leg cramps; patient instructed to report any side effects. - Arrange for x-ray imaging of the back to evaluate the cause of pain post fall; provide medication for pain relief with advice to take it with food. - Continue current management plan for gastroesophageal reflux disease GERD) and ensure medication is obtained from the pharmacy. - Continue monitoring and maintain lifestyle modifications for hypercholesterolemia and mild hyperglycemia, with emphasis on low-fat diet and exercise. - Provide patient with anticipatory guidance regarding fall prevention and encourage daily stretching exercises to promote musculoskeletal health. - Advise the patient to adhere to safety measures to prevent respiratory infections, especially during flu season. - Schedule follow-up in three months for reassessment of blood pressure management and overall health status. Orders: Orders XR lumbar spine 2-3V Today M54.50 - Low back pain, unspecified Medications: New hydrochlorothiazide 12.5 mg PO DAILY 30 tabs 3RF I10 - Essential (primary) hypertension meloxicam 15 mg PO DAILY 30 tabs 0RF M54.50 - Low back pain, unspecified Refilled omeprazole 20 mg PO DAILY 90 caps 2RF K21.9 - Gastro-esophageal reflux disease without esophagitis
[2024-10-16 09:38] VITALS: BP 142/80; PULSE 77; O2SAT 99; BMI 26.3
== END 2024-10-16 10:01 | disposition home or self-care (01) ==
DX: R03.0 Elevated blood-pressure reading, without diagnosis of hypertension (principal); K76.0 Fatty (change of) liver, not elsewhere classified; R73.02 Impaired glucose tolerance (oral); K21.9 Gastro-esophageal reflux disease without esophagitis; E78.00 Pure hypercholesterolemia, unspecified; I10 Essential (primary) hypertension; M54.50 Low back pain, unspecified

== ENCOUNTER → 2024-10-16 09:34 | Outpatient (BNVA) | payer MEDICARE, MEDICAID, SELFPAY | PROVIDERS: PCP Internal Medicine; Visit Provider Internal Medicine | DX: R03.0 Elevated blood-pressure reading, without diagnosis of hypertension (principal); K76.0 Fatty (change of) liver, not elsewhere classified; R73.02 Impaired glucose tolerance (oral); K21.9 Gastro-esophageal reflux disease without esophagitis; E78.00 Pure hypercholesterolemia, unspecified; I10 Essential (primary) hypertension; M54.50 Low back pain, unspecified | CPT/HCPCS: 99212 ==

== ENCOUNTER 2024-10-17 10:14 | Outpatient (REF) | payer MEDICARE, MEDICAID, SELFPAY | END 2024-10-17 10:15 | disposition home or self-care (01) | LOC: HO.XRAY 10:14 | PROVIDERS: PCP Internal Medicine; Visit Provider Internal Medicine | DX: M54.50 Low back pain, unspecified (principal) | CPT/HCPCS: 72100 ==

== ENCOUNTER → 2024-10-17 10:19 | Outpatient (BNV) | payer MEDICARE, MEDICAID, SELFPAY | PROVIDERS: PCP Internal Medicine; Visit Provider Radiology Diagnostic Radiology | DX: M54.50 Low back pain, unspecified (principal); M51.369 Other intervertebral disc degeneration, lumbar region without mention of lumbar back pain or lower extremity pain | CPT/HCPCS: 72100 ==

== ENCOUNTER 2024-12-04 08:21 | Outpatient (AMB) | payer MEDICARE, MEDICAID, SELFPAY ==
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
[2024-12-04 08:25] VITALS: BP 130/90; PULSE 67; TEMP 36.4; O2SAT 99; BMI 26.9
[2024-12-04 08:49] VITALS: BP 138/72
== END 2024-12-04 08:51 | disposition home or self-care (01) ==
LOC: HO.HMCH 08:22
PROVIDERS: PCP Internal Medicine
DX: I10 Essential (primary) hypertension (principal); K76.0 Fatty (change of) liver, not elsewhere classified; R73.02 Impaired glucose tolerance (oral); K21.9 Gastro-esophageal reflux disease without esophagitis

== ENCOUNTER → 2024-12-04 08:21 | Outpatient (BNVA) | payer MEDICARE, MEDICAID, SELFPAY | PROVIDERS: PCP Internal Medicine | DX: I10 Essential (primary) hypertension (principal); K76.0 Fatty (change of) liver, not elsewhere classified; R73.02 Impaired glucose tolerance (oral); K21.9 Gastro-esophageal reflux disease without esophagitis | CPT/HCPCS: 99212 ==

== ENCOUNTER 2025-01-17 10:30 | Outpatient (AMB) | payer MEDICARE, MEDICAID, SELFPAY ==
--- NOTE | 2025-01-17 10:39 | A.OFFPC_ITS ---
Vital Signs 01/17/25 10:40 01/17/25 10:57 Height 5 ft 9 in Weight 181 lb 6 oz BMI 26.8 BP 150/80 H 130/78 Blood Pressure Location Lt brachial Lt brachial Position Sitting Sitting Pulse 78 Pulse Source Pulse Oximeter Temp 97.1 F Temp Source Temporal Artery Scan Pulse Oximetry (%) 98 Oxygen Delivery Method Room Air Intake Visit Reasons: Hypertension Intake Note: Patient is here to follow up on HTN. Selling Underwriter Required: No [employer] Executive Director: Not Required per policy Accompanied by: Self / Same As Patient Allergies No Known Allergies Allergy (Verified 01/17/25 10:43) Medication List - Last Reconciled 01/17/25 by Grisel Gracia PA-C hydrochlorothiazide 12.5 mg PO DAILY meloxicam 15 mg PO DAILY miscellaneous medical supply (Blood Pressure Cuff) As directed omeprazole 20 mg PO DAILY trazodone 50 mg PO BEDTIME PRN 90 days Tobacco use date assessed: 01/17/25 Fall risk assessment: No Falls in past year Last assessed Fall Risk: 01/17/25 Dental Screening Dental Screen Date: 10/16/24 HPI Hypertension HPI Details 74-year-old male with hypercholesterolem ia GERD impaired glucose tolerance generalized anxiety disorder coming in for follow-up on blood pressure. Presenting for hypertension management and evaluation of abdominal pain. For hypertension, the patient has reported issues with his blood pressure monitor not functioning properly and discrepancies in medication refills. Blood pressure at home was stable but was elevated at today's visit. Abdominal pain is reported with coughing or sneezing, described as pressure-like, located in the abdomen, l asting for six to eight months without worsening. He has not has a pain unless he is having coughing or sneezing and no pain with bearing down. [facility] Medical History Blood pressure elevated without history of HTN Digestive problems Hepatitis C Hepatitis B Polysubstance abuse BPH (benign prostatic hyperplasia) Anxiety and depression Fatty liver Insomnia Impaired glucose tolerance GERD (gastroesophageal reflux disease) Vitamin D deficiency Alcohol abuse Hypercholesterolemia C2 cervical fracture Surgical History History of open reduction and internal fixation (ORIF) procedure History of cataract surgery History of cholecystectomy Family History Father Diabetes Hypertension Mother Gastric cancer Brother Liver cancer Social History Housing: Apartment Alcohol intake: current Alcohol intake frequency: a few times a month Comment: weekend 3-4 beers Patient Tobacco Use Status: Former Tobacco user Tobacco use type: Cigarette Years Smoked: quit 2020 smokes pot e-Cigarette/Vaping Use: Never Used Second Hand Smoke Exposure: Yes service: No Current occupational status: retired Cognitive needs: No Hearing needs: No Vision needs: No Questionnaire Thrive Questionnaire Date Thrive assessed: 10/16/24 DE-7 AMB Questionnaire DE-7 Date DE - 7 assessed: 10/16/24 Source: Developed by Drs. Rafy Caballero, Bere Alejandro, Klever Christianson and colleagues, with an educational amador from [employer]. Review of Systems Const Denies body aches, Denies chills, Denies fever(s), Denies headache(s) and Denies poor appetite Eyes Reports no additional complaints ENT Denies dizziness and Denies headache(s) Card Denies chest pain, Denies lightheadedness and Denies dyspnea Resp Denies dyspnea GI Reports abdominal pain (As per HPI), Denies constipation, Denies diarrhea, Denies nausea and Denies vomiting Reports no additional complaints Musc Reports no additional complaints and Denies abnormal gait Skin/Breast Reports system reviewed and no additional complaints, except as documented Neuro Denies abnormal gait, Denies dizziness and Denies headache(s) Psych Reports no additional complaints Physical exam (Primary Care) Vital Signs: Last Vital Signs Temp 97.1 F 01/17/25 10:40 Oxygen Delivery Method Room Air 01/17/25 10:40 BMI result Body Mass Index 26.8 Tobacco/Smoking Status: Tobacco use Status Tobacco use date assessed 12/04/24 12/04/24 08:29 Patient Tobacco Use Status Former Tobacco user 12/04/24 08:29 Tobacco use type Cigarette 12/04/24 08:29 e-Cigarette/Vaping Use Never Used 12/04/24 08:29 Thrive Assessment: Date of Thrive Assessment Date Thrive assessed 10/16/24 12/04/24 08:29 Const General: cooperative, healthy appearing, comfortable and no acute distress Orientation/consciousness: patient oriented x3 HENMT Head: Yes normocephalic Ears: hearing grossly normal bilaterally General nose exam: Normal external nose present Eyes General: appearance normal, both eyes and all related structures Conjunctivae: conjunctivae normal Neck Neck: Yes full ROM and Yes no lymphadenopathy Resp Effort & Inspection: normal respiratory effort Auscultation: clear to auscultation bilaterally, no crackles, no rales, no rhonchi and no wheezes Cardio Rate: regular rate Rhythm: regular rhythm GI Other: No mass palpated no hernia palpated with coughing Palpation (GI): Soft to palpation, not firm, nontender, no guarding, not rigid and no masses Skin General skin exam: no rashes or lesions noted Neuro General: patient oriented x3 Gait exam (Neuro): Normal gait present Extrem General: Yes normal to inspection, Yes full ROM and No edema Psych Affect: normal affect Attitude: cooperative Insight: Good insight present (Psych) Judgement: Good judgement present (Psych) Coding Level of Care Code Est Pt Level 3 (54396) Diagnoses Hypertension I10 Fatty liver K76.0 Impaired glucose tolerance R73.02 Gastroesophageal reflux disease without esophagitis K21.9 Esophagitis presence: without esophagitis Abdominal discomfort R10.9 Assessment & Plan Assessment & Plan (1) Hypertension: Code(s): I10 - Essential (primary) hypertension Category: Medical Plan: Continue on current blood pressure medication. Avoid salt intake and encourage healthy diet and regular exercise. Blood pressure normalized once retaken 130/78 Continue on hydrochlorothiazide and new prescription sent for blood pressure monitor. (2) Fatty liver: Comment: May 2016 Code(s): K76.0 - Fatty (change of) liver, not elsewhere classified Category: Medical Plan: Healthy diet and regular exercise is encouraged. (3) Impaired glucose tolerance: Code(s): R73.02 - Impaired glucose tolerance (oral) Category: Medical Plan: Decrease the amount of carbohydrates such as pasta, bread, rice, and potatoes and limit the amount of sweets. Although fruits are generally healthy they should be eaten in moderation as they are still high in sugar. (4) GERD (gastroesophageal reflux disease): Comment: loose stools Code(s): K21.9 - Gastro-esophageal reflux disease without esophagitis Category: Medical Qualifiers: Esophagitis presence: without esophagitis Qualified Code(s): K21.9 - Gastro-esophageal reflux disease without esophagitis Plan: Avoid trigger foods such as citrus, tomato products, soda, caffeine, spicy foods and other foods that may be irritating to your stomach. Avoid laying flat 3-4 hours after eating and elevate the head of the bed 30 degrees to prevent acid fr om moving into the esophagus. Continue on Omeprazole (5) Abdominal discomfort: Code(s): R10.9 - Unspecified abdominal pain Category: Medical Plan: Patient having right lower quadrant abdominal discomfort with coughing or sneezing. On exam no hernias palpated and patient has no tenderness to exam. No bowel changes or other symptoms reported. I did offer CAT scan to evaluate for possible hernia patient would like to hold off and monitor symptoms at this time. Plan to continue to monitor symptoms and follow up with Dr. Escalante in 3 months. Plan I plan to provide the patient with a new blood pressure monitor due to malfunctions with his current device and ensure his hypertension is well-managed with a consistent supply of medication. His blood pressure is stable at 130/78 mmHg. For abdominal pain associated with coughing, a [id number] strategy is advised due to the lack of alarming symptoms or palpable abnormalities, though a CT scan will be considered if symptoms worsen. Clinical findings will be reassessed during the next annual visit. This note was constructed using voice recognition software. While every effort has been made to ensure accuracy and geoscience technician, still areas may have been included sometimes these areas may affect the content or meeting of the given symptoms. Total time spent caring for the patient today was 20 minutes. This includes time spent before the visit reviewing the chart, time spent during the visit, and time spent after the visit and documentation. Patient was informed and verbally consented to the use of an ambient scribe for clinic note documentation during this visit. Medications: New multivitamin (Daily Multi-Vitamin tablet) 1 tab PO DAILY 90 tabs 1RF blood pressure monitor As directed; to check blood pressures daily 1 ea 0RF I10 - Essential (primary) hypertension Refilled hydrochlorothiazide 12.5 mg PO DAILY 90 tabs 3RF I10 - Essential (primary) hypertension
[2025-01-17 10:40] VITALS: BP 150/80; PULSE 78; TEMP 36.2; O2SAT 98; BMI 26.8
[2025-01-17 10:57] VITALS: BP 130/78
--- OUTSIDE RECORDS SUMMARY | 2025-01-17 11:30 | XMS_ITS | Patient Health Record ---
Author Organization [facility] Address [address] [place] [address] Care Team Providers Care Booker Name Role Phone Demario Escalante MD Primary Care Provider Sumit Quiles Jr Unavailable Reason For Referral No Information Medications Medication SIG (Take, Route, Fr equency, Duration) Notes Start Date End Date Status Omeprazole 20 MG 1 capsule Orally Once a day Active Suboxone Active Problems Problem Type SNOMED Code ICD Code Onset Dates Problem Status W/U Status Risk Notes Problem [id number] Gastroesophageal reflux disease without esophagitis (K21.9) Active confirmed Problem 411933058 Fatty liver (K76.0) Active confirmed Problem [id number] Positive hepatit is C antibody test (R76.8) Active confirmed Problem [id number] Hepatitis B core antibody positive (R76.8) Active confirmed Plan Of Treatment No Information Insurance Providers Payer Name Payer Address Payer Phone Subscriber Number Group Number Insured Name Patient Relationship to Insured Coverage Start Date Coverage End Date MEDICARE OF [place] [address] [place] [id number] LUX ELKINS Self - patient is the insured MEDICAID OF [employer] [facility] [address] [place] [address] [id number] LUX ELKINS Self - patient is the insured Medical (General) History Medical History History ICD Code gastroesophageal reflux disease Denies PR,DM,CVA,Lung disease,renal dise ase Surgical History Surgery Date(Month/Year) cholecystectomy
== END 2025-01-17 11:02 | disposition home or self-care (01) ==
LOC: HO.HMCH 10:30
PROVIDERS: PCP Internal Medicine
DX: I10 Essential (primary) hypertension (principal); K76.0 Fatty (change of) liver, not elsewhere classified; R73.02 Impaired glucose tolerance (oral); K21.9 Gastro-esophageal reflux disease without esophagitis; R10.9 Unspecified abdominal pain

== ENCOUNTER → 2025-01-17 10:30 | Outpatient (BNVA) | payer MEDICARE, MEDICAID, SELFPAY | PROVIDERS: PCP Internal Medicine | DX: I10 Essential (primary) hypertension (principal); K76.0 Fatty (change of) liver, not elsewhere classified; R73.02 Impaired glucose tolerance (oral); K21.9 Gastro-esophageal reflux disease without esophagitis; R10.9 Unspecified abdominal pain | CPT/HCPCS: 99212 ==

== ENCOUNTER 2025-05-03 08:49 | Outpatient (AMB) | payer MEDICARE, MEDICAID, SELFPAY ==
[2025-05-03 09:09] VITALS: BP 138/82; PULSE 72; O2SAT 97; BMI 26.1
--- NOTE | 2025-05-03 09:09 | AM.OFFVISMDC ---
Intake Vital Signs 05/03/25 09:09 Height 5 ft 9 in Weight 177 lb BMI 26.1 BP 138/82 Blood Pressure Location Lt brachial Position Sitting Pulse 72 Pulse Source Pulse Oximeter Pulse Oximetry (%) 97 Oxygen Delivery Method Room Air Intake Visit Reasons: AWV Allergies No Known Allergies Allergy (Verified 05/03/25 09:10) Medication List - Last Reconciled 05/03/25 by Demario Escalante MD blood pressure monitor As directed; to check blood pressures daily hydrochlorothiazide 12.5 mg PO DAILY multivitamin (Daily Multi-Vitamin tablet) 1 tab PO DAILY omeprazole 20 mg PO DAILY trazodone 50 mg PO BEDTIME PRN 90 days HPI AWV HPI Details [facility] pain management, [facility] neurosurgery, Dr. Lopez [facility], [facility] Medical History Blood pressure elevated without history of HTN Digestive problems Hepatitis C Hepatitis B Polysubstance abuse BPH (benign prostatic hyperplasia) Anxiety and depression Fatty liver Insomnia Impaired glucose tolerance GERD (gastroesophageal reflux disease) Vitamin D deficiency Alcohol abuse Hypercholesterolemia C2 cervical fracture Surgical History History of open reduction and internal fixation (ORIF) procedure History of cataract surgery History of cholecystectomy Family History Father Diabetes Hypertension Mother Gastric cancer Brother Liver cancer Social History Housing: Apartment Alcohol intake: current Alcohol intake frequency: a few times a month Comment: weekend 3-4 beers Patient Tobacco Use Status: Former Tobacco user Tobacco use type: Cigarette Years Smoked: quit 2020 smokes pot e-Cigarette/Vaping Use: Never Used Second Hand Smoke Exposure: Yes service: No Current occupational status: retired Cognitive needs: No Hearing needs: No Vision needs: No Questionnaire Medicare Wellness Checkup [age] What gender do you identify with?: male During the past 4 weeks, how much have you been bothered by emotional problems such as feeling anxious, depressed, irritable, sad or downhearted, and blue?: slightly During the past 4 weeks, has your physical & emotional health limited your social activities with family, friends, neighbors, or groups?: not at all During the past 4 weeks, how much bodily pain have you generally had?: mild pain During the past 4 weeks, was someone available to help you if you needed & wanted help?: yes, as much as I wanted During the past 4 weeks, what was the hardest physical activity you could do for at least 2 minutes?: very light Can you get to places out of walking distance without help? (For eg., can you travel alone on buses, taxis or drive your car?): Yes Can you go shopping for groceries or clothes without someone's help?: Yes Can you prepare your own meals?: Yes Can you do your housework without help?: Yes Because of any health problems, do you need the help of another person with your personal care needs such as eating, bathing, dressing or getting around the house?: No Can you handle your own money without help?: Yes During the past 4 weeks, how would you rate your health in general?: fair During the past 4 weeks how have things been going for you?: pretty well Are you having difficulties driving your car?: no Do you always fasten your seat belt when you are in a car?: yes, sometimes During past 4 weeks, have you been bothered by the following: never: Falling or dizzy when standing up, Sexual problems?, Trouble eating well?, Teeth or denture problems?, Problems using the telephone? and Tiredness or fatigue? Have you fallen 2 or more times in the past year?: No Are you afraid of falling?: No Are you a smoker?: no During the past 4 weeks, how many drinks of wine, beer, or other alcoholic beverages did you have?: 1 drink or less per week Do you exercise for about 20 minutes 3 or more times a week?: yes, most of the time Have you been given information to help with the following?: yes: Keeping track of your medications? and no: Hazards in your house that might hurt you? How often do you have trouble taking medicines the way you have been told to take them?: I always take medicine as prescribed How confident are you that you can control & manage most of your health problems?: very confident What is your race?: or origin or descent PHQ-9 Over the last 2 weeks, how often have you been bothered by any of the following problems? 1. Little interest or pleasure in doing things: several days 2. Feeling down, depressed, or hopeless: nearly every day 3. Trouble falling or staying asleep, or sleeping too much: more than half the days 4. Feeling tired or having little energy: several days 5. Poor appetite or overeating: not at all 6. Feeling bad about yourself - or that you are a failure or have let yourself or your family down: not at all 7. Trouble concentrating on things, such as reading the newspaper or watching television: not at all 8. Moving or speaking so slowly that other people could have noticed. Or the opposite - being so fidgety or restless that you have been moving around a lot more than usual: nearly every day 9. Thoughts that you would be better off or of hurting yourself in some way: nearly every day Total score: 13 Depression Screening Interpretation: Positive Depression Screening Done: Yes 50861 - PHQ-9 Billing: Yes Source: Developed by Drs. Rafy Caballero, Bere Alejandro, Klever Christianson and colleagues, with an educational amador from [employer]. Review of Systems Const Denies poor appetite and Denies weakness Eyes Denies no additional complaints ENT Reports Normal hearing present, Denies dizziness, Denies nasal congestion, Denies tinnitus and Denies sore throat Card Denies chest pain, Denies syncope, Denies rapid heart rate and Denies dyspnea Resp Denies cough and Denies dyspnea GI Denies change in stool character, Reports constipation, Denies diarrhea, Denies nausea and Denies vomiting Denies dysuria and Denies urinary frequency Neuro Reports Normal hearing present, Denies confusion, Denies dizziness, Denies syncope and Denies weakness Psych Denies confusion Physical Exam Vital Signs: Last Vital Signs Pulse 72 05/03/25 09:09 BP 138/82 05/03/25 09:09 Pulse Ox 97 05/03/25 09:09 Oxygen Delivery Method Room Air 05/03/25 09:09 BMI result Body Mass Index 26.1 Const General: No confusion Orientation/consciousness: No confusion HEENT Head: Yes normocephalic Ears: external ears normal and TM's normal bilaterally Face and sinus: Yes normal facial exam Mouth: moist mucous membranes Throat: Yes tonsils normal Eyes Conjunctivae: conjunctivae normal Pupils: Equal, round and reactive pupils present and Pupil accommodation reflex normal Direct Ophthalmoscopy: normal light reflex Neck Neck: No lymphadenopathy Thyroid: Thyroid normal Chest Chest palpation & inspection: normal inspection of the chest Resp Effort & Inspection: normal respiratory effort and no audible wheezes Auscultation: clear to auscultation bilaterally, no crackles, no wheezes and lung sounds not diminished Cardio Rate: regular rate Rhythm: regular rhythm Peripheral pulses: radial pulses present and dorsalis pedis present GI Other: Declined rectal exam but on examination of the abdomen soft nontender no rebound no guarding but +++bowel sounds Palpation (GI): no masses Auscultation: normal bowel sounds and normoactive bowel sounds Rectal Exam - Male: Yes deferred Skin General skin exam: no rashes or lesions noted Rashes: no rashes Neuro General: No confusion Cranial nerves: Yes Equal, round and reactive pupils present and Yes Normal hearing present Cognition (Neuro): normal cognition Gait exam (Neuro): Normal gait present Motor exam (neuro): 5/5 motor strength present throughout Deep tendon reflexes (DTR's): Right brachioradialis reflex intensity grade: 2+, Left brachioradialis reflex intensity grade: 2+, Right patellar reflex intensity grade: 2+ and Left patellar reflex intensity grade: 2+ Extrem General: No edema Assessment & Plan Assessment & Plan (1) Annual wellness visit: Code(s): Z00.00 - Encounter for general adult medical examination without abnormal findings Plan: Patient is advised to eat healthy, keep well hydrated, keep active and have adequate sleep. (2) C2 cervical fracture: Comment: odontoid fracture 07/2020 Code(s): S12.100A - Unspecified displaced fracture of second cervical vertebra, initial encounter for closed fracture Qualifiers: Encounter type: subsequent encounter Fracture type: closed Fracture morphology: unspecified fracture morphology Fracture alignment: displaced Fracture healing: with delayed healing Qualified Code(s): S12.100G - Unspecified displaced fracture of second cervical vertebra, subsequent encounter for fracture with delayed healing Plan: Supportive treatment (3) BPH (benign prostatic hyperplasia): Code(s): N40.0 - Benign prostatic hyperplasia without lower urinary tract symptoms Qualifiers: Lower urinary tract symptom presence: symptoms present Lower urinary tract symptom detail: urinary frequency Qualified Code(s): N40.1 - Benign prostatic hyperplasia with lower urinary tract symptoms; R35.0 - Frequency of micturition Plan: Stable (4) Fatty liver: Comment: May 2016 Code(s): K76.0 - Fatty (change of) liver, not elsewhere classified Plan: Low-fat diet and exercise (5) GERD (gastroesophageal reflux disease): Comment: loose stools Code(s): K21.9 - Gastro-esophageal reflux disease without esophagitis Qualifiers: Esophagitis presence: without esophagitis Qualified Code(s): K21.9 - Gastro-esophageal reflux disease without esophagitis Plan: Avoid the foods that causes that usually spicy foods, tomato products, juices, coffee, soda and foods that your sensitive to. After eating do not lie down, allow 3-4 hours before in lie down. And keep the head of bed above 30 degrees to avoid the acid from going up. (6) Impaired glucose tolerance: Code(s): R73.02 - Impaired glucose tolerance (oral) Plan: Decrease the amount of carbohydrate intake, pasta, bread, rice and potatoes are all sugar and that is aside from all the sweet stuff, remember that fruits are good but they are Sweet also. (7) Hypertension: Code(s): I10 - Essential (primary) hypertension Plan: Continue with blood pressure medication. Decrease salt intake and exercise on hydrochlorothiazide (8) Hypercholesterolemia: Code(s): E78.00 - Pure hypercholesterolemia, unspecified Plan: Avoid fried foods, chicken skin, eggs, butter margarine, pastries and meat. Be it pork or beef they have a lot of cholesterol diet controlled (9) Generalized anxiety disorder: Code(s): F41.1 - Generalized anxiety disorder Plan: Stable Plan History of Present Illness The patient is a 74-year-old male presenting for an annual wellness visit and evaluation of gastrointestinal symptoms. The patient has a history of hypercholesterolemia, benign prostatic hyperplasia, generalized anxiety disorder, hepatic steatosis, and hypertension. He has been experiencing gastrointestinal disturbances characterized by frequent bowel movements, with stools that are sometimes formed and sometimes watery, for the past six months. The patient denies any new diagnoses or surgeries since the last visit. His last blood work in 2023 showed macrocytosis, low normal potassium, elevated blood glucose, but normal hemoglobin A1c, liver function tests, cholesterol levels, PSA, vitamin B12, folic acid, and thyroid function. He is currently on hydrochlorothiazide for hypertension and takes trazodone for sleep. The patient reports no allergies to medications. Socially, the patient consumes alcohol on weekends, typically three to four beers, and occasionally smokes marijuana. He denies smoking cigarettes and reports regular exercise by walking for half an hour to an hour each morning. The patient follows a low-fat diet and avoids dairy due to intolerance. Health Maintenance - Colon cancer screening with stool test recommended due to gastrointestinal symptoms - Blood work requested to evaluate current health status - Advised to maintain a low-fat diet and avoid dairy products - Discussed potential need for shingles vaccination and flu shot in June Social History - Alcohol consumption: Drinks three to four beers on weekends - Substance use: Occasionally smokes marijuana, denies cigarette smoking - Exercise: Walks for half an hour to an hour each morning - Diet: Follows a low-fat diet and avoids dairy due to intolerance Review of Systems - Gastrointestinal: Reports frequent bowel movements with stools that are sometimes formed and sometimes watery for six months. Denies constipation. - Neurological: Denies dizziness, syncope, or focal neurological deficits. - Cardiovascular: Denies chest pain, palpitations, or dyspnea. - Respiratory: Denies cough, wheezing, or shortness of breath. - Genitourinary: Denies dysuria or hematuria. Reports nocturia a couple of times per night. - Musculoskeletal: Denies joint pain or swelling. Physical Exam General: Cooperative, healthy appearing, comfortable, no acute distress and well developed Orientation: Patient oriented x3 Limitations: No limitations Head: Normal to inspection Ears: Hearing grossly normal bilaterally Nose: Normal external nose present Face and sinus: Normal facial exam Eyes: Appearance normal, both eyes and all related structures Neck: Normal visual inspection and Yes full ROM Respiratory: Normal respiratory effort and able to speak in complete sentences. Clear to auscultation bilaterally Cardiovascular: Regular rate and rhythm. Normal S1 and S2 GI: Soft to palpation, nontender, no rebound, no guarding, but +++ bowel sounds Skin: No rashes or lesions noted Neuro: Patient oriented x3 Extremities: Normal to inspection Results - Labs: Macrocytosis, low normal potassium, elevated blood glucose, normal hemoglobin A1c, normal liver function tests, normal cholesterol levels, normal PSA, normal vitamin B12, normal folic acid, normal thyroid function Plan Patient was informed and verbally consented to the use of an ambient scribe for clinic note documentation during this visit. 1. Gastrointestinal Disturbance The patient will undergo stool testing to evaluate the cause of gastrointestinal symptoms, which have persisted for six months. A colonoscopy may be considered earlier than the usual interval due to these symptoms. Dietary modifications include a low-fat diet and avoidance of dairy products to help manage symptoms. 2. Hypertension The patient is currently on hydrochlorothiazide for hypertension management. He has been advised to limit alcohol intake as it may affect blood pressure control. 3. Hypercholesterolemia The patient's cholesterol levels are currently well-controlled with dietary management. 4. Preventative Care Preventative measures include a recommendation for a shingles vaccination and a flu shot in June. Blood work has been requested to assess the patient's current health status. Discussion Notes During the visit, I discussed with the patient the need for stool testing to investigate his gastrointestinal symptoms, which have been ongoing for six months. We also talked about the importance of dietary modifications, including a low-fat diet and avoiding dairy, to help manage his symptoms. I advised him on the potential need for an earlier colonoscopy due to his symptoms and emphasized the importance of limiting alcohol intake to manage his hypertension. Preventative care measures, such as a shingles vaccination and a flu shot in June, were also discussed. Patient Instructions - Undergo stool testing as soon as possible. - Follow a low-fat diet and avoid dairy products to help manage gastrointestinal symptoms. - Limit alcohol intake to help control blood pressure. - Schedule a colonoscopy if symptoms persist or worsen. - Consider getting a shingles vaccination and a flu shot in June. Orders: Orders Complete Blood Count Auto Diff Today I10 - Essential (primary) hypertension Reticulocyte Count Today I10 - Essential (primary) hypertension Prostate Specific Antigen Scr Today I10 - Essential (primary) hypertension CDiff Gene PCR Today I10 - Essential (primary) hypertension Comprehensive Met. Panel Today I10 - Essential (primary) hypertension Free T4 (Free Thyroxine) Today I10 - Essential (primary) hypertension Thyroid Stimulating Hormone Today I10 - Essential (primary) hypertension Ferritin Today I10 - Essential (primary) hypertension IRON PROFILE Today I10 - Essential (primary) hypertension Lipid Panel Today E78.00 - Pure hypercholesterolemia, unspecified, I10 - Essential (primary) hypertension Vitamin B12 and Folate Today I10 - Essential (primary) hypertension Hemoglobin A1c Today I10 - Essential (primary) hypertension H pylori Ag Stool Today I10 - Essential (primary) hypertension Leukocytes Stool Qualitative Today I10 - Essential (primary) hypertension Ova and Parasite Today I10 - Essential (primary) hypertension Quality Reporting (2019) Depression/Bipolar (159/160/161/177) PHQ-9: Total score: 13 Coding Level of Care Code Medicare Subsequent (G0439) Diagnoses Annual wellness visit Z00.00 Closed displaced fracture of second cervical vertebra with delayed healing, unspecified fracture morphology, subsequent encounter S12.100G Encounter type: subsequent encounter Fracture type: closed Fracture morphology: unspecified fracture morphology Fracture alignment: displaced Fracture healing: with delayed healing Benign prostatic hyperplasia with urinary frequency N40.1; R35.0 Lower urinary tract symptom presence: symptoms present Lower urinary tract symptom detail: urinary frequency Fatty liver K76.0 Gastroesophageal reflux disease without esophagitis K21.9 Esophagitis presence: without esophagitis Impaired glucose tolerance R73.02 Hypertension I10 Hypercholesterolemia E78.00 Generalized anxiety disorder F41.1 Additional Codes PHQ-9 - 72221 - PHQ-9 Billing: Yes ([id number])
--- OUTSIDE RECORDS SUMMARY | 2025-05-03 09:36 | XMS_ITS | Patient Health Record ---
Author Organization [facility] Address [address] [place] [address] Care Team Providers Care It Investment/Portfolio Manager Name Role Phone Demario Escalante MD Primary Care Provider Sumit Quiles Jr Unavailable Reason For Referral No Information Medications Medication SIG (Take, Route, Fr equency, Duration) Notes Start Date End Date Status Omeprazole 20 MG 1 capsule Orally Once a day Active Suboxone Active Problems Problem Type SNOMED Code ICD Code Onset Dates Problem Status W/U Status Risk Notes Problem [id number] Gastroesophageal reflux disease without esophagitis (K21.9) Active confirmed Problem [id number] Fatty liver (K76.0) Active confirmed Problem [id number] Positive hepatit is C antibody test (R76.8) Active confirmed Problem 111521776 Hepatitis B core antibody positive (R76.8) Active confirmed Plan Of Treatment No Information Insurance Providers Payer Name Payer Address Payer Phone Subscriber Number Group Number Insured Name Patient Relationship to Insured Coverage Start Date Coverage End Date MEDICARE OF [place] [address] [place] [id number] [phone] [id number] LUX ELKINS Self - patient is the insured MEDICAID OF [facility] [address] [place] [phone] [id number] LUX EKLINS Self - patient is the insured Medical (General) History Medical History History ICD Code gastroesophageal reflux disease Denies OH,DM,CVA,Lung disease,renal dise ase Surgical History Surgery Date(Month/Year) cholecystectomy
== END 2025-05-03 09:51 | disposition home or self-care (01) ==
LOC: HO.HMCH 08:49
PROVIDERS: PCP Internal Medicine; Visit Provider Internal Medicine
DX: Z00.00 Encounter for general adult medical examination without abnormal findings (principal); N40.1 Benign prostatic hyperplasia with lower urinary tract symptoms; R35.0 Frequency of micturition; S12.100G Unspecified displaced fracture of second cervical vertebra, subsequent encounter for fracture with delayed healing; K76.0 Fatty (change of) liver, not elsewhere classified; K21.9 Gastro-esophageal reflux disease without esophagitis; R73.02 Impaired glucose tolerance (oral); I10 Essential (primary) hypertension; E78.00 Pure hypercholesterolemia, unspecified; F41.1 Generalized anxiety disorder

== ENCOUNTER → 2025-05-03 08:49 | Outpatient (BNVA) | payer MEDICARE, MEDICAID, SELFPAY | PROVIDERS: PCP Internal Medicine; Visit Provider Internal Medicine | DX: Z00.00 Encounter for general adult medical examination without abnormal findings (principal); N40.1 Benign prostatic hyperplasia with lower urinary tract symptoms; R35.0 Frequency of micturition; K76.0 Fatty (change of) liver, not elsewhere classified; K21.9 Gastro-esophageal reflux disease without esophagitis; R73.02 Impaired glucose tolerance (oral); I10 Essential (primary) hypertension; E78.00 Pure hypercholesterolemia, unspecified; F41.1 Generalized anxiety disorder; S12.100G Unspecified displaced fracture of second cervical vertebra, subsequent encounter for fracture with delayed healing; Z87.891 Personal history of nicotine dependence | CPT/HCPCS: 96127 ==

== ENCOUNTER 2025-05-10 07:57 | Outpatient (REF) | payer MEDICARE, MEDICAID, SELFPAY ==
[2025-05-10 08:18] LABS: MANUAL DIFF FLAG NO
[2025-05-10 09:21] LABS: Hematocrit 42.4 % (42.0-52.0); Hemoglobin 14.7 g/dl (14.0-18.0); Imm Gran Abs Auto 0.03 X10*3/uL (0.00-0.03); Imm Gran Pct Auto 0.4 % (0.0-0.4); Lymphocytes Absolute Auto 1.9 X10*3/uL (1.2-4.9); Mean Corpuscular HGB Conc 34.7 g/dl (31.0-36.0); Mean Corpuscular Hemoglobin 33.3 pg (27.0-33.0); Mean Corpuscular Volume 95.9 fL (80.0-98.0); NRBC Abs Auto 0.000 X10*3/uL (0.0-0.012); NRBC Pct Auto 0.0 /100WBC (0.0-0.2); Platelet Count 192 X10*3/uL (160-400); Red Blood Count 4.42 X10*6/uL (4.60-5.80); Reticulocytes Absolute 0.103 X10*6/uL (0.026-0.095); White Blood Count 6.8 X10*3/uL (4.8-10.8)
[2025-05-10 09:29] LABS: Hemoglobin A1C 122.8490 umol/L; Total Hemoglobin (HGBA1C) 3736.5155 umol/L
[2025-05-10 10:32] LABS: Alanine Aminotransferase 17 U/L (0-40); Albumin Level 4.4 g/dL (3.5-5.0); Alkaline Phosphatase 89 U/L (39-117); Anion Gap 13 (12-20); Aspartate Amino Transferase 26 U/L (5-37); Blood Urea Nitrogen 10 mg/dL (9-16); Calcium 9.4 mg/dL (8.4-10.2); Carbon Dioxide 29 mmol/L (22-29); Chloride 107 mmol/L (96-108); Cholesterol 188 mg/dL (<200); Estimated Glomerular Filt Rate > 60; HDL Cholesterol 60 mg/dL (>40); Iron 126 mcg/dL (45-160); Percent Iron Saturation 41 % (15-50); Potassium 3.1 mmol/L (3.3-5.1); Sodium 146 mmol/L (135-145); Total Iron Binding Capacity 310 mcg/dL (228-428); Total Protein 6.9 g/dL (6.5-8.0); Triglycerides 98 mg/dL (<150); Unsaturated Iron Binding 184 ug/dL
[2025-05-10 10:56] LABS: Ferritin 60 ng/mL (20-250); Free T4 (Free Thyroxine) 1.06 ng/dL (0.71-1.85); Thyroid Stimulating Hormone 1.96 uIU/mL (0.32-4.0)
[2025-05-10 11:07] LABS: Folate 9.5 ng/mL (> or = 4.0); Vitamin B12 340 pg/mL (200-900)
== END 2025-05-10 07:58 | disposition home or self-care (01) ==
LOC: HO.LAB 07:57
PROVIDERS: Visit Provider Internal Medicine
DX: I10 Essential (primary) hypertension (principal); E78.00 Pure hypercholesterolemia, unspecified; Z12.5 Encounter for screening for malignant neoplasm of prostate; Z13.1 Encounter for screening for diabetes mellitus; Z13.0 Encounter for screening for diseases of the blood and blood-forming organs and certain disorders involving the immune mechanism
CPT/HCPCS: 36415; 80053; 80061; 82607; 82728; 82746; 83036; 83540; 84153; 84439; 84443; 85025; 85045

== ENCOUNTER 2025-07-05 09:04 | Outpatient (AMB) | payer MEDICARE, MEDICAID, SELFPAY ==
[2025-07-05 09:10] VITALS: BP 150/98; PULSE 76; TEMP 36.3; O2SAT 98; BMI 26.6
--- NOTE | 2025-07-05 09:10 | A.OFFPC_ITS ---
Vital Signs 07/05/25 09:10 07/05/25 09:56 Height 5 ft 9 in Weight 180 lb 4 oz BMI 26.6 BP 150/98 H 138/88 Blood Pressure Location Lt brachial Lt brachial Position Sitting Sitting Pulse 76 Pulse Source Pulse Oximeter Temp 97.3 F Temp Source Temporal Artery Scan Pulse Oximetry (%) 98 Oxygen Delivery Method Room Air Intake Visit Reasons: diarrhea Allergies No Known Allergies Allergy (Verified 07/05/25 09:14) Medication List - Last Reviewed 07/05/25 by Iesha Sofia MA blood pressure monitor As directed; to check blood pressures daily hydrochlorothiazide 12.5 mg PO DAILY multivitamin (Daily Multi-Vitamin tablet) 1 tab PO DAILY omeprazole 20 mg PO DAILY trazodone 50 mg PO BEDTIME PRN 90 days Tobacco use date assessed: 07/05/25 Fall risk assessment: No Falls in past year Last assessed Fall Risk: 07/05/25 Dental Screening Dental Screen Date: 07/05/25 Did you have a dental visit in the last 12 months?: No Did you have a dental problem in the last 6 months where you did not have access to dental care?: No Was dental information given to patient?: Yes HPI diarrhea HPI Details 74-year-old with past medical history of hypercholesterolemia, GERD, impaired glucose tolerance, BPH, fatty liver, hypertension last seen 04/2025 coming in for acute problem. Presenting with a complaint of worsening gastrointestinal issues. He reports having frequent bowel movements, up to four times each morning, which has been an ongoing issue for over five years. The patient describes his stool as initially hard, then becoming loose, and he notes the presence of mucus at the end of wiping. He experiences diarrhea all day if he consumes beer, but otherwise does not have frequent diarrhea. He denies constipation. He typically will have 4 bowel movements in the morning and resolve throughout the day. Associated with his bowel symptoms, the patient has abdominal pain that is relieved after a bowel movement but returns the next day. This pain, located across his mid-abdomen, can be severe enough to make coughing painful. Past medical history is significant for a cholecystectomy in 2012 and hemorrhoids that bleed when he eats spicy food. His last colonoscopy was five years ago. [facility] Medical History Blood pressure elevated without history of HTN Digestive problems Hepatitis C Hepatitis B Polysubstance abuse BPH (benign prostatic hyperplasia) Anxiety and depression Fatty liver Insomnia Impaired glucose tolerance GERD (gastroesophageal reflux disease) Vitamin D deficiency Alcohol abuse Hypercholesterolemia C2 cervical fracture Surgical History History of open reduction and internal fixation (ORIF) procedure History of cataract surgery History of cholecystectomy Family History Father Diabetes Hypertension Mother Gastric cancer Brother Liver cancer Social History Housing: Apartment Alcohol intake: current Alcohol intake frequency: a few times a month Comment: weekend 3-4 beers Patient Tobacco Use Status: Former Tobacco user Tobacco use type: Cigarette Years Smoked: quit 2020 smokes pot e-Cigarette/Vaping Use: Never Used Second Hand Smoke Exposure: Yes service: No Current occupational status: retired Cognitive needs: No Hearing needs: No Vision needs: No Questionnaire PHQ-9 Over the last 2 weeks, how often have you been bothered by any of the following problems? 1. Little interest or pleasure in doing things: not at all 2. Feeling down, depressed, or hopeless: not at all 3. Trouble falling or staying asleep, or sleeping too much: not at all 4. Feeling tired or having little energy: not at all 5. Poor appetite or overeating: not at all 6. Feeling bad about yourself - or that you are a failure or have let yourself or your family down: not at all 7. Trouble concentrating on things, such as reading the newspaper or watching television: not at all 8. Moving or speaking so slowly that other people could have noticed. Or the opposite - being so fidgety or restless that you have been moving around a lot more than usual: not at all 9. Thoughts that you would be better off or of hurting yourself in some way: not at all Total score: 0 Depression Screening Interpretation: Positive Depression Screening Done: Yes Source: Developed by Drs. Rafy Caballero, Bere Alejandro, Klever Christianson and colleagues, with an educational amador from [employer]. Thrive Questionnaire Date Thrive assessed: 07/05/25 I am a: Patient What is your living situation today?: I have a steady place to live Within the past 12 months, did the food you bought not last and you didn't have the money to get more?: Never true Within the past 12 months, did you worry whether your food would run out before you got money to buy more?: Never true Do you have trouble paying for medicines?: No Do you have trouble getting transportation to medical appointments?: No Do you have trouble paying your heating and electricity bill?: No Do you have trouble taking care of your child, family member or friend?: No Do you have trouble with day-to-day activities such as bathing, preparing meals, shopping, managing finances, etc.?: No Are you currently unemployed and looking for a job?: No Are you interested in more education?: No Please select the resources that you would like help with: Food Currently or been in a relationship where the following occur: No concerns reported THRIVE Score: 0 AUDIT C Alcohol Use Questionnaire (AUDIT-C) 1. How often do you have a drink containing alcohol?: 2-4 times a month 2. How many drinks containing alcohol do you have on a typical day when you are drinking?: 1 or 2 3. How often do you have six or more drinks on one occasion?: Never Total Score: 2 DE-7 AMB Questionnaire DE-7 Date DE - 7 assessed: 07/05/25 Feeling nervous, anxious, or on edge: 0 = Not at all Not being able to stop or control worryin = Not at all Worrying too much about different things: 0 = Not at all Trouble relaxin = Not at all Being so restless that it is hard to sit still: 0 = Not at all Becoming easily annoyed or irritable: 0 = Not at all Feeling afraid as if something awful might happen: 0 = Not at all Total DE-7 score (0-4 normal; 5-9 mild; 10-14 moderate; 15-21 severe): 0 Source: Developed by Drs. Rafy Caballero, Bere Alejandro, Klever Christianson and colleagues, with an educational amador from [employer]. Review of Systems Const Denies body aches, Denies chills, Denies fever(s), Denies headache(s) and Denies poor appetite Eyes Reports no additional complaints ENT Denies headache(s) Card Denies chest pain, Denies lightheadedness and Denies dyspnea Resp Denies dyspnea GI Reports as per HPI, Reports abdominal pain, Denies constipation, Reports diarrhea, Reports loose stools, Denies nausea and Denies vomiting Reports no additional complaints Musc Reports no additional complaints and Denies abnormal gait Skin/Breast Reports system reviewed and no additional complaints, except as documented Neuro Denies abnormal gait and Denies headache(s) Psych Reports no additional complaints Physical exam (Primary Care) Vital Signs: Last Vital Signs Temp 97.3 F 07/05/25 09:10 Pulse 76 07/05/25 09:10 BP 150/98 H 07/05/25 09:10 Pulse Ox 98 07/05/25 09:10 Oxygen Delivery Method Room Air 07/05/25 09:10 BMI result Body Mass Index 26.6 Tobacco/Smoking Status: Tobacco use Status Tobacco use date assessed 07/05/25 07/05/25 09:12 Patient Tobacco Use Status Former Tobacco user 07/05/25 09:12 Tobacco use type Cigarette 07/05/25 09:12 e-Cigarette/Vaping Use Never Used 07/05/25 09:12 PHQ-9: PHQ-9 Score PHQ-9: Total score 0 07/05/25 09:19 Depression Screening Interpretation: Positive Thrive Assessment: Date of Thrive Assessment Date Thrive assessed 07/05/25 07/05/25 09:19 Currently or been in a relationship where the following occur: No concerns reported Const General: cooperative, healthy appearing, comfortable and no acute distress Orientation/consciousness: patient oriented x3 [facility] Head: Yes normocephalic Ears: hearing grossly normal bilaterally General nose exam: Normal external nose present Eyes General: appearance normal, both eyes and all related structures Conjunctivae: conjunctivae normal Neck Neck: Yes full ROM and Yes no lymphadenopathy Resp Effort & Inspection: normal respiratory effort Auscultation: clear to auscultation bilaterally, no crackles, no rales, no rhonchi and no wheezes Cardio Rate: regular rate Rhythm: regular rhythm GI Inspection: No Abdominal wall edema and No distended Palpation (GI): Soft to palpation, not firm, nontender, no guarding, not rigid, no masses and No Rebound tenderness present Skin General skin exam: no rashes or lesions noted Neuro General: patient oriented x3 Gait exam (Neuro): Normal gait present Extrem General: Yes normal to inspection, Yes full ROM and No edema Psych Affect: normal affect Attitude: cooperative Insight: Good insight present (Psych) Judgement: Good judgement present (Psych) Coding Level of Care Code Est Pt Level 3 (73998) Diagnoses Frequent loose stools R19.7 Bile salt-induced diarrhea K90.89 Abdominal discomfort R10.9 Hypokalemia E87.6 Assessment & Plan Assessment & Plan (1) Frequent loose stools: Code(s): R19.7 - Diarrhea, unspecified Category: Medical Plan: I believe the patient's concerns to be mulitfactorial and have a component of post-cholcystectomy diarrhea as well as IBS. The patient's symptoms of chronic abdominal pain relieved by defecation and altered bowel habits are consistent with Irritable Bowel Syndrome (IBS). His history of cholecystectomy likely contributes to postprandial diarrhea, especially with trigger foods like beer and fatty meals, due to the absence of stored bile. A referral will be placed for gastroenterology consultation for further evaluation and to ensure he is up to date with colonoscopy. Cholestyramine powder is prescribed to be taken as needed, up to four times a day and 40-60 minutes before meals, to act as a synthetic bile and help manage diarrhea. A daily fiber supplement is also prescribed to help bulk the stool and improve consistency. The patient was counseled on a low FODMAP diet avoiding tr igger foods like dairy, whole grains, and certain fruits and vegetables, and was provided a handout. Lab orders are placed for celiac testing to rule out gluten intolerance as a contributing factor. (2) Bile salt-induced diarrhea: Code(s): K90.89 - Other intestinal malabsorption Category: Medical Plan: See above plan (3) Abdominal discomfort: Code(s): R10.9 - Unspecified abdominal pain Category: Medical Plan: See above plan (4) Hypokalemia: Code(s): E87.6 - Hypokalemia Category: Medical Plan: A recent lab result showed a mildly low potassium level of 3.1 mmol/L. The patient was previously prescribed potassium pills. Potassium levels will be rechecked with the current lab order to monitor his status. Plan This note was constructed using voice recognition software. While every effort has been made to ensure accuracy and sorority mother, still areas may have been included sometimes these areas may affect the content or meeting of the given symptoms. Total time spent caring for the patient today was 20 minutes. This includes time spent before the visit reviewing the chart, time spent during the visit, and time spent after the visit and documentation. Patient was informed and verbally consented to the use of an ambient scribe for clinic note documentation during this visit. Orders: Orders Transglutaminase Ab IgG Today R19.7 - Diarrhea, unspecified Potassium Today E87.6 - Hypokalemia Referrals Gastroenterology Referral K90.89 - Other intestinal malabsorption, R10.9 - Unspecified abdominal pain, R19.7 - Diarrhea, unspecified Medications: New cholestyramine (with sugar) 4 gram no meds 1 hr before/4-6 hr after dose 4 grams PO QIDACHS 348.6 grams 0RF psyllium husk (Metamucil) 0.4 grams PO BEDTIME 90 caps 0RF
[2025-07-05 09:56] VITALS: BP 138/88
--- OUTSIDE RECORDS SUMMARY | 2025-07-05 10:10 | XMS_ITS | Patient Health Record ---
Author Organization [facility] Address [address] [place] [id number] Care Team Providers Care Sas Bi Developer Name Role Phone Demario Escalante MD Primary Care Provider Sumit Quiles Jr Unavailable Reason For Referral No Information Medications Medication SIG (Take, Route, Fr equency, Duration) Notes Start Date End Date Status Omeprazole 20 MG 1 capsule Orally Once a day Active Suboxone Active Problems Problem Type SNOMED Code ICD Code Onset Dates Problem Status W/U Status Risk Notes Problem Gastroesophageal reflux disease without esophagitis (480224847) Gastroesophageal reflux disease without esophagitis (K21.9) Active confirmed Problem Fatty liver (415970556) Fatty liver (K76.0) Active confirmed Problem Hepatitis C antibody test positive (088298303) Positive hepatitis C antibody test (R76.8) Active confirmed Problem Hepatitis B core antibody positive (861760357) Hepatitis B core antibody positive (R76.8) Active confirmed Plan Of Treatment No Information Insurance Providers Payer Name Payer Address Payer Phone Subscriber Number Group Number Insured Name Patient Relationship to Insured Coverage Start Date Coverage End Date MEDICARE OF [place] [address] [place] [id number] LUX ELKINS Self - patient is the insured MEDICAID OF [facility] [address] [place] [phone] [id number] LUX ELKINS Self - patient is the insured Medical (General) History Medical History History ICD Code gastroesophageal reflux disease Denies VT,DM,CVA,Lung disease,renal dise ase Surgical History Surgery Date(Month/Year) cholecystectomy
== END 2025-07-05 09:40 | disposition home or self-care (01) ==
LOC: HO.HMCH 09:05
PROVIDERS: PCP Internal Medicine
DX: R19.7 Diarrhea, unspecified (principal); K90.89 Other intestinal malabsorption; R10.9 Unspecified abdominal pain; E87.6 Hypokalemia

== ENCOUNTER → 2025-07-05 09:04 | Outpatient (BNVA) | payer MEDICARE, MEDICAID, SELFPAY | PROVIDERS: PCP Internal Medicine | DX: R19.7 Diarrhea, unspecified (principal); K90.89 Other intestinal malabsorption; R10.9 Unspecified abdominal pain; E87.6 Hypokalemia | CPT/HCPCS: 99212 ==

== ENCOUNTER 2025-07-11 07:47 | Outpatient (REF) | payer MEDICARE, MEDICAID, SELFPAY ==
--- OUTSIDE RECORDS SUMMARY | 2025-07-11 07:50 | XMS_ITS | Patient Health Record ---
Author Organization [facility] Address [address] [place] [id number] Care Team Providers Care Dredge Pipe Installer Name Role Phone Demario Escalante MD Primary [...] Notes Problem Gastroesophageal reflux disease without esophagitis (411038055) Gastroesophageal reflux disease without esophagitis (K21.9) Active confirmed Problem Fatty liver (484968070) Fatty liver (K76.0) Active confirmed Problem Hepatitis C antibody test positive (768875120) Positive hepatitis C antibody test (R76.8) Active confirmed Problem Hepatitis B core antibody positive (038779488) Hepatitis B core antibody positive (R76.8) Active confirmed Plan Of Treatment No Information Insurance Providers Payer Name Payer Address Payer Phone Subscriber Number Group Number Insured Name Patient Relationship to Insured Coverage Start Date Coverage End Date MEDICARE OF [place] [address] [place] [id number] LUX ELKINS Self - patient is the insured MEDICAID OF [facility] [address] [place] [address] [id number] LUX ELKINS Self - patient is the insured Medical (General) History Medical History History ICD Code gastroesophageal reflux disease Denies ID,DM,CVA,Lung disease,renal dise ase Surgical History Surgery Date(Month/Year) cholecystectomy
[2025-07-11 09:22] LABS: Potassium 3.3 mmol/L (3.3-5.1)
[2025-07-12 16:53] LABS: Transglutaminase Ab IgG <1.0 U/mL
== END 2025-07-11 07:48 | disposition home or self-care (01) ==
LOC: HO.LAB 07:47
PROVIDERS: PCP Internal Medicine
DX: E87.6 Hypokalemia (principal); R19.7 Diarrhea, unspecified
CPT/HCPCS: 36415; 84132; 86364